=== PATIENT | female | born 1965 | race Caucasian/White ===

== ENCOUNTER 2023-04-06 12:46 | Outpatient (RCR) | payer MEDICAID, SELFPAY | END 2024-03-31 12:07 | disposition left against medical advice (07) | LOC: HO.WCC 12:46 | PROVIDERS: PCP Family Medicine; Visit Provider Physician Assistant | DX: E11.621 Type 2 diabetes mellitus with foot ulcer (principal); L97.412 Non-pressure chronic ulcer of right heel and midfoot with fat layer exposed; L97.812 Non-pressure chronic ulcer of other part of right lower leg with fat layer exposed; L89.323 Pressure ulcer of left buttock, stage 3; E11.622 Type 2 diabetes mellitus with other skin ulcer; I87.2 Venous insufficiency (chronic) (peripheral); R60.0 Localized edema; I10 Essential (primary) hypertension; F17.210 Nicotine dependence, cigarettes, uncomplicated; F11.20 Opioid dependence, uncomplicated; Z86.19 Personal history of other infectious and parasitic diseases | CPT/HCPCS: 11042; 11043; 11045; 97602; 99212; 99214; 99215 ==

== ENCOUNTER 2023-08-28 10:51 | Inpatient (IN) | payer MEDICAID, SELFPAY ==
[2023-08-28] VITALS (7 sets, daily range): BP systolic 131–185; BP diastolic 56–92; PULSE 65–85; RESP 16–20; TEMP 36.4–36.6; O2SAT 94–98; BMI 37.6; BMI 37.0
--- NOTE | ~2023-08-28 | US_ITS ---
EXAMINATION: Noninvasive assessment of the right lower extremities with ARTERIAL DUPLEX . CLINICAL INFORMATION: Peripheral vascular disease with vascular ulceration of the right heel TECHNIQUE: Duplex Doppler techniques with waveform analysis and measurement of velocities in the bilateral common femoral, profunda femoris, superficial femoral, popliteal were performed. Evaluation of the below-knee runoff vessels is limited due to difficulty adequately positioning the patient COMPARISON: None FINDINGS: DIRECT DUPLEX DOPPLER FINDINGS: RIGHT LEG: Common femoral artery: 132 cm/s, phasicity: Monophasic. Moderate calcified plaque Profunda femoris artery: Not visualized Superficial femoral artery (proximal): 185 cm/s, phasicity: Monophasic Superficial femoral artery (mid): 145 cm/s, phasicity: Monophasic Superficial femoral artery (distal): 125 cm/s, phasicity: Monophasic Popliteal artery: 117 cm/s, phasicity: Monophasic Posterior tibial artery: Not visualized Peroneal artery: Not visualized US/US arterial duplex LE RT IMPRESSION: Limited evaluation with patent arterial flow within the visualized femoral and popliteal arteries. Monophasic waveforms seen throughout which could indicate more proximal iliac arterial disease versus below-knee arterial occlusive disease
--- NOTE | ~2023-08-28 | CT_ITS ---
EXAMINATION: CT ANKLE WITH CONTRAST, RIGHT CLINICAL INFORMATION: Diabetic heel ulcer. Evaluate for osteomyelitis. COMPARISON: Right calcaneal radiographs dated 08/28/2023. TECHNIQUE: Contiguous axial CT images of the right ankle were obtained following the IV administration of 85 mL Omnipaque 350 contrast. Multiplanar reformats were provided and reviewed. This CT examination was performed using dose optimization techniques as appropriate, variously including the following: *Automated exposure control *Adjustment of mA and/or kV according to patient size (this includes techniques or standardized protocols for targeted exams where dose is matched to indication/reason for exam; i.e. extremities or head) *Use of iterative reconstruction technique. DOSE: 124 mGy-cm. FINDINGS: Soft tissue ulceration along the posterolateral aspect of the calcaneus measuring up to 3 cm in AP dimension with adjacent skin thickening and postcontrast enhancement. Skin thickening is more circumferential, prominent posteriorly. Mild underlying subcutaneous fat stranding. No peripherally enhancing soft tissue collection or abscess formation. No associated soft tissue mass. Findings are consistent with acute cellulitis. No adjacent periosteal reaction or cortical erosion to suggest osteomyelitis. Early osteomyelitis may be occult on CT examination and MRI without and with contrast or nuclear medicine bone scan could help further evaluate if clinically indicated. Diffuse osteopenia. No acute fracture or dislocation. Ankle mortise is maintained. Mild talonavicular joint space narrowing with small marginal osteophytes. No concerning lytic or blastic osseous lesion. Diffuse muscle atrophy. The visualized flexor and extensor tendons are grossly intact; however, evaluation is limited on CT examination. Unremarkable vascular structures without active extravasation of contrast. No enhancing soft tissue lesion or abscess formation. CT/CT ankle RT w IV con IMPRESSION: 1. Soft tissue ulceration along the posterolateral aspect of the calcaneus measuring up to 3 cm in AP dimension with adjacent skin thickening and subcutaneous fat stranding. Findings are consistent with acute cellulitis. No peripherally enhancing soft tissue collection or abscess formation. 2. No adjacent periosteal reaction or cortical erosion to suggest osseous myelitis. Early osteomyelitis may be occult on CT examination and MRI without and with contrast or nuclear medicine bone scan could help further evaluate 3. Diffuse muscle atrophy. 4. Mild talonavicular osteoarthritis.
--- NOTE | ~2023-08-28 | US_ITS ---
EXAMINATION: US VENOUS ULTRASOUND WITH DOPPLER LOWER EXTREMITY, RIGHT CLINICAL INFORMATION: Right-sided nonhealing ulcer COMPARISON: None available. TECHNIQUE: Ultrasound of the deep veins is performed from the hip to the calf with compression sonography and color and pulse Doppler assessment. Spectral analysis with color-flow imaging is performed. FINDINGS: Exam was terminated as per patient's request. Please see technologist note. The right common femoral and saphenofemoral junction appears patent. No other further assessment provided. US/US venous duplex LE RT IMPRESSION: As above.
--- NOTE | ~2023-08-28 | XR_ITS ---
EXAMINATION: XR CALCANEUS, RIGHT CLINICAL INFORMATION: Rule out osteomyelitis COMPARISON: None available. TECHNIQUE: Lateral and axial views of the right calcaneus were obtained. FINDINGS: Large soft tissue defect identified posterior lateral heel which does not extend to the bony surface. Another smaller posterior soft tissue defect identified medially. Bones are demineralized with no evidence of erosion to suggest active osteomyelitis. XR/XR calcaneus RT min 2V IMPRESSION: No radiographic evidence of osteomyelitis. Heel soft tissue ulcers.
--- NOTE | 2023-08-28 11:00 | ED.GENADULT ---
HPI - General Adult General Chief complaint: Skin/Abscess/Foreign Body Stated complaint: Infection on leg Time Seen by Provider: 08/28/23 11:05 Source: patient Mode of arrival: ambulatory Limitations: no limitations History of Present Illness HPI narrative: 58 yo female with history of diabetes, history of left BKA, chronic RLE wounds, urinary retention w/ chronic Hidalgo catheter, chronic pain on chronic opiates (high dose methadone and dilaudid) presenting [facility] the [facility] with concerns for possible osteomyelitis. Patient reportedly goes to the clinic every 2 weeks. Provider there called the ER and reported worsening right heel wound. She was not febrile or tachycardic. Patient reports increased pain to the entire right lower leg for the last several days. She reports it is usually dressed so she does not know if it is more swollen and red. Today there was increased drainage from the wounds when dressing was changed at the clinic. She denies fevers at home. No recent PO abx per patient. MD complaint: worsening RLE wounds Onset (ago): day(s) Location: right and lower extremity Radiation: proximal and distal Severity: severe Quality: stabbing and aching Pain Consistency: constant Relieving factors: none Exacerbating factors: movement Associated symptoms: denies other symptoms Treatments prior to arrival: none Related Data Allergies Allergy/AdvReac Type Severity Reaction Status Date / Time ceftriaxone Allergy Palpitation Verified 08/28/23 10:57 s haloperidol [From Haldol] Allergy Angioedema Verified 08/28/23 10:57 iodine Allergy Unknown Verified 08/28/23 10:57 metformin Allergy Vomiting Verified 08/28/23 10:57 pollen extracts Allergy Sneezing Verified 08/28/23 10:57 Review of Systems Review of Systems: Yes all other systems are reviewed and are negative [facility] Social History Social History Smoked in Last 30 Days: Yes Use of substances other than those prescribed or required for medical reasons: No Advance Directives: No Physical Exam ED Vital Signs: Vital Signs - 24 hr 08/28/23 10:58 08/28/23 13:40 Temperature 97.8 F 97.6 F Pulse Rate 69 65 Respiratory Rate 20 Blood Pressure 131/77 159/75 H Pulse Oximetry 94 95 Oxygen Delivery Method Room Air Room Air BMI result Body Mass Index 37.6 Appearance: Alert. Oriented X3. No acute distress. Head: normocephalic, atraumatic. Eyes: Pupils equal, round and reactive to light. ENT: Pharynx normal. No tonsillar swelling or exudate. poor dentition Neck: Normal inspection. Neck supple. CVS: Normal heart rate and rhythm. Pulses normal. Respiratory: No respiratory distress. Breath sounds normal. Abdomen: Soft and nontender. +BS x4 Skin: Skin warm and dry. Normal skin color. Normal skin turgor. No rashes. Extremities: s/p left BKA, right lower leg with diffuse erythema, 2+ pitting edema with chronic wounds scattered throughout, lateral wound w/ drainage. right calcaneous w/ beefy red ulcer, minimal drainage. see photo Neuro/psych: Oriented X 3. No motor deficit. No sensory deficit. CN II-XII intact. Normal speech and cognition. Medications Administered Discontinued Medications Generic Name Dose Route Start Last Admin Trade Name Freq PRN Reason Stop Dose Admin Hydromorphone HCl 1 mg 08/28/23 13:35 08/28/23 13:41 Hydromorphone Hcl 1 Mg/Ml Syringe IVPUSH 08/28/23 13:36 1 mg ONCE ONE Administration Protocol Piperacillin Sod/Tazobactam 50 mls @ 100 mls/hr 08/28/23 13:21 08/28/23 13:41 Sod 3.375 gm/ Sodium Chloride IV 08/28/23 13:50 100 mls/hr ONCE ONE Administration Oxycodone HCl 5 mg 08/28/23 11:39 08/28/23 11:52 Oxycodone Hcl Immed Release 5 Mg Tablet PO 08/28/23 11:40 5 mg ONCE ONE Administration Procedures EJ/Peripheral Line Neck R: Time Out Performed: Yes Skin Cleansed in Sterile Fashion: Yes Size (gauge): 20 IV Secured and Dressing Applied: Yes Patient Tolerated Procedure: well and no complications Medical Decision Making Medical Decision Making MDM Narrative: 58 yo female with history of diabetes, history of left BKA, chronic RLE wounds, urinary retention w/ chronic Hidalgo catheter, chronic pain on chronic opiates (high dose methadone and dilaudid) presenting to the ER from the [facility] with concerns for possible osteomyelitis. Patient has had worsening wounds w/ new drainage. Pain is chronic and she is on chronic high dose opiates. VSS on arrival. She is in severe pain w/ limited ROM and placement of the right leg due to pain in the heel. XR calcaneous is negative for osteo. Labs reassuring. Patient not septic at this time. Will plan to admit for IV antibiotics and close monitoring given history and concern for underlying osteo Differential Diagnosis Differential Diagnoses: The differential diagnosis associated with the presentation includes cellulitis, acute on chronic wound infection, osteomyelitis, abscess lower leg Admission/Observation Consideration of admission/observation: Escalation of care including admission/observation considered Consult Healthcare Provider Management of the patient was discussed with: Manufacturing Plant Controller brennan from wound care - concern for osteo, recommending MRI Lab Data [facility] Lab Attestation statement: I reviewed the patient's lab results. 08/28/23 13:25 08/28/23 13:24 Labs: Lab Results 08/28/23 08/28/23 Range/Units 13:24 13:25 WBC 8.9 (4.8-10.8) X10*3/uL RBC 5.40 (4.20-5.50) X10*6/uL Hgb 15.1 (12.0-16.0) g/dl Hct 47.7 H (37.0-47.0) % MCV 88.3 (80.0-98.0) fL MCH 28.0 (27.0-33.0) pg MCHC 31.7 (31.0-35.0) g/dl RDW 15.9 (11.0-16.0) % Plt Count 331 (160-400) X10*3/uL MPV 9.9 (9.4-12.3) fL Immature Gran % (Auto) 0.3 (0.0-0.4) % Neut % (Auto) 53.6 (45-73) % Lymph % (Auto) 36.3 (20-40) % Weld % (Auto) 6.4 (2-11) % Eos % (Auto) 2.6 (0-4) % Baso % (Auto) 0.8 (0-2) % Lymph # (Auto) 3.2 (1.2-4.9) X10*3/uL Weld # (Auto) 0.6 (0.1-1.2) X10*3/uL Eos # (Auto) 0.2 (0.0-0.4) X10*3/uL Baso # (Auto) 0.1 (0.0-0.2) X10*3/uL Abs Immat Gran (auto) 0.03 (0.00-0.03) X10*3/uL Absolute Neuts (auto) 4.7 (2.0-8.3) x10*3/uL Absolute Nucleated RBC 0.000 (0.0-0.012) X10*3/uL Nucleated RBC % (auto) 0.0 (0.0-0.2) /100WBC ESR 11 (0-20) MM/HR Sodium 141 (135-145) mmol/L Potassium 3.9 (3.3-5.1) mmol/L Chloride 102 (96-108) mmol/L Carbon Dioxide 30 H (22-29) mmol/L Anion Gap 13 (12-20) BUN 13 (9-16) mg/dL Creatinine 0.71 (0.5-1.4) mg/dL Estim Creat Clear Calc 77.9 Estimated GFR > 60 Random Glucose 179 H (60-115) mg/dL Lactic Acid 1.6 (0.5-2.0) mmol/L Calcium 9.4 (8.4-10.2) mg/dL C-Reactive Protein 0.75 H (< or = 0.50) mg/dL Independent Interpretation I performed an independent interpretation of an: Plain X-Ray Interpretation: xr heel without definitive bony erosions, agree w/ radiology read Radiology Impression Discussion of test interpretation with radiology: I have reviewed the radiologist's reading. Radiologist Impression: EXAMINATION: XR CALCANEUS, RIGHT CLINICAL INFORMATION: Rule out osteomyelitis COMPARISON: None available. TECHNIQUE: Lateral and axial views of the right calcaneus were obtained. FINDINGS: Large soft tissue defect identified posterior lateral heel which does not extend to the bony surface. Another smaller posterior soft tissue defect identified medially. Bones are demineralized with no evidence of erosion to suggest active osteomyelitis. XR/XR calcaneus RT min 2V IMPRESSION: No radiographic evidence of osteomyelitis. Heel soft tissue ulcers. External Record Review External record reviewed: Outpatient record Prescription Management I considered prescription management with: Pain Medication and Antibiotic Chronic Conditions Patient?s care impacted by: Diabetes Critical Care Time Critical Care Time Critical Care Time: Yes Total Critical Care Time: 34 Attestation: I have personally provided critical care time exclusive of time spent on separately billable procedures. Time includes review of lab data, radiology results, discussion with consultants, and monitoring for potential decompensation. Intervention performed as documented. Discharge Plan Discharge Clinical Impression: Cellulitis Qualifiers: Site of cellulitis: extremity Site of cellulitis of extremity: lower extremity Laterality: right Qualified Code(s): L03.115 - Cellulitis of right lower limb Patient Disposition: Admitted As Inpatient
[2023-08-28] MEDS: oxyCODONE HCl Immed Release 5 MG TABLET PO (11:52)
--- NOTE | 2023-08-28 12:04 | PC.NURSE ---
in xray at this time. provider brandon dickens came to bedside to do US- will do when back. pt was diff stick- multiple RNS/tech tried to get blood/IV. unable. PA aware. wound undressed w PA at bedside. right leg: indentations in skin in heel/schwab/calf areas. very pink/warm. reports numbness/tingling. painful when moves. swollen. limited ROM r/t pain. elevation helps- given pillows and elevated. aox4. no respiratory distress- reg breathing.
--- NOTE | 2023-08-28 12:20 | PC.NURSE ---
dressing placed by RN after cleansing wounds to R leg. PA at bedside, visualized prior to dressing
--- NOTE | 2023-08-28 12:30 | PC.NURSE ---
attending MD Cobb at bedside attempting to place PIV/obtain blood.
--- NOTE | 2023-08-28 13:00 | PC.NURSE ---
MD Cobb at bedside attempting again for IV/blood with ultrasound. To attempt EJ
--- NOTE | 2023-08-28 13:40 | PC.NURSE ---
MD Cobb placing EJ via ultrasound and obtaining blood
[2023-08-28 13:41] LABS: MANUAL DIFF FLAG NO
[2023-08-28] MEDS: HYDROmorphone HCl 1 MG/ML SYRINGE IVPUSH ×2 (13:41→16:03)
[2023-08-28] MEDS: Piperacillin Sodium/Tazobactam 3.375 GM in 0.9 % Sodium Chloride 50 ML IV ×2 (13:41→21:15)
[2023-08-28 13:44] LABS: Basophils Absolute Auto 0.1 X10*3/uL (0.0-0.2); Basophils Percent Auto 0.8 % (0-2); Eosinophils Absolute Auto 0.2 X10*3/uL (0.0-0.4); Eosinophils Percent Auto 2.6 % (0-4); Hematocrit 47.7 % (37.0-47.0); Hemoglobin 15.1 g/dl (12.0-16.0); Imm Gran Abs Auto 0.03 X10*3/uL (0.00-0.03); Imm Gran Pct Auto 0.3 % (0.0-0.4); Lymphocytes Absolute Auto 3.2 X10*3/uL (1.2-4.9); Lymphocytes Percent Auto 36.3 % (20-40); Mean Corpuscular HGB Conc 31.7 g/dl (31.0-35.0); Mean Corpuscular Volume 88.3 fL (80.0-98.0); Mean Platelet Volume 9.9 fL (9.4-12.3); Monocytes Absolute Auto 0.6 X10*3/uL (0.1-1.2); Monocytes Percent Auto 6.4 % (2-11); Neutrophils Absolute Auto 4.7 x10*3/uL (2.0-8.3); Neutrophils Percent Auto 53.6 % (45-73); Platelet Count 331 X10*3/uL (160-400); Red Cell Distribution Width 15.9 % (11.0-16.0); White Blood Count 8.9 X10*3/uL (4.8-10.8)
[2023-08-28 13:56] LABS: Lactic Acid 1.6 mmol/L (0.5-2.0)
[2023-08-28 13:58] LABS: Anion Gap 13 (12-20); Blood Urea Nitrogen 13 mg/dL (9-16); C Reactive Protein 0.75 mg/dL (< or = 0.50); Calcium 9.4 mg/dL (8.4-10.2); Carbon Dioxide 30 mmol/L (22-29); Chloride 102 mmol/L (96-108); Creatinine Clr Calc Pharmacy 77.9; Estimated Glomerular Filt Rate > 60; Glucose Random 179 mg/dL (60-115); Potassium 3.9 mmol/L (3.3-5.1); Sodium 141 mmol/L (135-145)
--- NOTE | 2023-08-28 14:00 | PC.NURSE ---
pt repositioned w pillows
[2023-08-28 14:31] LABS: Erythrocyte Sedimentation Rate 11 MM/HR (0-20)
[2023-08-28] MEDS: vancomycin/NS 2,000 MG/500 ML PLAST..BAG 250 MG IV (14:57)
--- NOTE | 2023-08-28 15:30 | PHA.MEDREC ---
Pharmacy Consult ? Medication Reconciliation Pharmacy has completed the medication reconciliation. Patient came from [facility] with medications. Called to conformed patient last received methadone this morning 08/28 @ 0800. Mina FranzD
--- NOTE | 2023-08-28 16:00 | PC.NURSE ---
boosted, repositioned. offered more pillows. tucked r knee over pillow/blankets as requested by pt. no resp distress. reports some pain relief noted. no respiratory distress. offered heat pack for knee.
[2023-08-28] MEDS: clonazePAM 0.5 MG TABLET PO ×2 (16:01→20:45)
--- NOTE | 2023-08-28 16:33 | PM.IMHP ---
History of Present Illness Date of Service: 08/28/23 Chief Complaint: infected heel ulcer 58yo F long-term resident of [facility] with DM2 s/p L BKA, HTN, chronic pain on methadone + hydromorphone, urinary retention with chronic Hidalgo anxiety/depression, and tobacco abuse who was sent in by the [facility], where she was being seen for a chronic R heel ulcer as well as ulcers on the schwab. They sent her in for concern of infection and possible underlying osteomyelitis due to worsening drainage as well as extensive redness. She reports increasing burning pain to the RLE for several. She denies fever or chills. In the ED, she was given IV vancomycin and piperacillin-tazobactam. A plain film X-ray did not demonstrate bony erosion. Review of Systems Review of Systems: Yes all other systems are reviewed and are negative [facility] Medical History Chronic pain syndrome Tobacco abuse History of left below knee amputation Urinary retention Hypertension Diabetes mellitus type 2 in obese Social History Smoked in Last 30 Days: Yes Use of substances other than those prescribed or required for medical reasons: No Advance Directives: No Meds Allergies Allergy/AdvReac Type Severity Reaction Status Date / Time ceftriaxone Allergy Palpitation Verified 08/28/23 10:57 s haloperidol [From Haldol] Allergy Angioedema Verified 08/28/23 10:57 iodine Allergy Unknown Verified 08/28/23 10:57 metformin Allergy Vomiting Verified 08/28/23 10:57 pollen extracts Allergy Sneezing Verified 08/28/23 10:57 Active Medications: Current Medications Acetaminophen (Acetaminophen 325 Mg Tablet) 650 mg PO Q6H PRN PRN Reason: Pain, Mild (Pain Scale 1-3) Aspirin (Aspirin Enteric Coated 81 Mg Tablet.Dr) 81 mg PO DAILY RIA Atorvastatin Calcium (Atorvastatin Calcium 10 Mg Tablet) 10 mg PO BEDTIME RIA Baclofen (Baclofen 10 Mg Tablet) 15 mg PO TID RIA Chlorhexidine Gluconate (Chlorhexidine Gluc Oral Rinse 15 Ml Mouthwash) 15 ml BUCCAL BID RIA Clonazepam (Clonazepam 0.5 Mg Tablet) 0.5 mg PO BID RIA Dextrose (Dextrose 50 % 25 Gm/50 Ml Syringe) 25 gm IVPUSH Q15M PRN; Protocol PRN Reason: per Hypoglycemia Standing Ord. Enoxaparin Sodium (Enoxaparin Sodium 40 Mg/0.4 Ml Syringe) 40 mg SUBCUT Q24H [facility] Famotidine (Famotidine 20 Mg Tablet) 20 mg PO DAILY [facility] Gabapentin (Gabapentin 400 Mg Capsule) 800 mg PO TID [facility] Glucose (Glucose Gel 15 Gm Gel..Gram.) 15 gm PO Q15M PRN; Protocol PRN Reason: per Hypoglycemia Standing Ord. Hydromorphone HCl (Hydromorphone Hcl 4 Mg Tablet) 8 mg PO TID [facility] Hydromorphone HCl (Hydromorphone Hcl 4 Mg Tablet) 8 mg PO Q12H PRN PRN Reason: Pain, Severe (Pain Scale 7-10) Hydroxyzine HCl (Hydroxyzine Hcl 50 Mg Tablet) 100 mg PO BEDTIME [facility] Piperacillin Sod/Tazobactam (Sod 3.375 gm/ Sodium Chloride) 50 mls @ 100 mls/hr IV Q6H [facility] Insulin Glargine (Insulin Glargine,Hum.Rec.Anlog 100 Unit/Ml 10 Ml Vial) 10 unit SUBCUT BEDTIME [facility] Insulin Human Lispro (Insulin Lispro 100 Unit/Ml 3 Ml Vial) 0 unit SUBCUT QIDACHS [facility]; Protocol Lisinopril (Lisinopril 2.5 Mg Tablet) 2.5 mg PO DAILY [facility]; Protocol Loperamide HCl (Loperamide Hcl 2 Mg Capsule) 2 mg PO Q6H PRN PRN Reason: Loose Stool Melatonin (Melatonin 3 Mg Tablet) 9 mg PO BEDTIME PRN PRN Reason: Insomnia Methadone HCl (Methadone Hcl 20 Mg/2 Ml Oral.Conc) 150 mg PO DAILY [facility] Multivitamins/Vitamin C (Multivitamin Tablet) 1 tab PO DAILY [facility] Ondansetron HCl (Ondansetron Hcl 4 Mg/2 Ml Vial) 4 mg IVPUSH Q8H PRN PRN Reason: Nausea and Vomiting Oxybutynin Chloride (Oxybutynin Chloride 5 Mg Tablet) 5 mg PO BEDTIME [facility] Pharmacy Consult (Consult Rx Vancomycin Dosing) 1 each MISCELLANE DAILY PRN PRN Reason: Consult order Polyethylene Glycol (Polyethylene Glycol 3350 17 Gm Powd.Pack) 17 gm PO DAILY [facility] Senna (Sennosides 8.6 Mg Tablet) 8.6 mg PO BID [facility] Sodium Chloride (0.9 % Sodium Chloride Flush 3 Ml Syringe) 3 ml IVFLUSH QSHIFT [facility] Thiamine HCl (Thiamine Hcl 100 Mg Tablet) 100 mg PO DAILY [facility] Tizanidine HCl (Tizanidine Hcl 4 Mg Tablet) 2 mg PO TID [facility] Topiramate (Topiramate 25 Mg Tablet) 25 mg PO DAILY [facility] Trazodone HCl (Trazodone Hcl 50 Mg Tablet) 50 mg PO BEDTIME [facility] Home Medications Medication Instructions Recorded Confirmed Last Taken Type Saccharomyces boulardii 1 cap PO BID 08/28/23 08/28/23 Unknown History acetaminophen 500 mg tablet 1,000 mg PO TID 08/28/23 08/28/23 Unknown History ammonium lactate 5 % lotion 1 appl topical DAILY 08/28/23 08/28/23 Unknown History (Lac-Hydrin Five) aspirin 81 mg capsule 81 mg PO DAILY 08/28/23 08/28/23 Unknown History atorvastatin 10 mg tablet 10 mg PO BEDTIME 08/28/23 08/28/23 Unknown History baclofen 5 mg tablet 15 mg PO TID 08/28/23 08/28/23 Unknown History chlorhexidine gluconate 0.12 % 15 ml buccal BID 08/28/23 08/28/23 Unknown History mouthwash clonazepam 0.5 mg tablet (Klonopin) 0.5 mg PO BID 08/28/23 08/28/23 Unknown History clotrimazole 1 % topical cream 1 appl topical BID 08/28/23 08/28/23 Unknown History empagliflozin 25 mg tablet 25 mg PO DAILY 08/28/23 08/28/23 Unknown History famotidine 20 mg tablet 20 mg PO DAILY 08/28/23 08/28/23 Unknown History gabapentin 800 mg tablet 800 mg PO TID 08/28/23 08/28/23 Unknown History glipizide 10 mg tablet, extended 20 mg PO DAILY 08/28/23 08/28/23 Unknown History release 24 hr hydromorphone 8 mg tablet 8 mg PO Q12H PRN Pain 08/28/23 08/28/23 Unknown History hydromorphone 8 mg tablet 8 mg PO TID 08/28/23 08/28/23 Unknown History (Dilaudid) hydroxyzine HCl 50 mg tablet 100 mg PO BEDTIME 08/28/23 08/28/23 Unknown History insulin glargine 100 unit/mL 10 unit subcut QPM 08/28/23 08/28/23 Unknown History subcutaneous solution (Lantus U-100 Insulin) insulin lispro 100 unit/mL 1 sliding scale dose subcut 08/28/23 08/28/23 Unknown History subcutaneous solution (Admelog USEASDIRECTD U-100 Insulin lispro) lidocaine 3 % topical cream 1 appl topical DAILY PRN Pain 08/28/23 08/28/23 Unknown History lidocaine 3 % topical cream 1 appl topical Q48H 08/28/23 08/28/23 Unknown History lisinopril 2.5 mg tablet 2.5 mg PO DAILY 08/28/23 08/28/23 Unknown History loperamide 2 mg tablet 2 mg PO Q6H PRN Loose Stool 08/28/23 08/28/23 Unknown History melatonin 5 mg tablet 10 mg PO BEDTIME PRN Insomnia 08/28/23 08/28/23 Unknown History methadone 10 mg/mL oral 150 mg PO DAILY 08/28/23 08/28/23 08/28/23 08:00 History concentrate (Methadose) multivitamin 1 tab PO DAILY 08/28/23 08/28/23 Unknown History oxybutynin chloride 5 mg tablet 5 mg PO BEDTIME 08/28/23 08/28/23 Unknown History polyethylene glycol 3350 17 gram 17 g PO DAILY 08/28/23 08/28/23 Unknown History oral powder packet (Miralax) sennosides 8.6 mg tablet (senna) 8.6 mg PO BID 08/28/23 08/28/23 Unknown History thiamine HCl (vitamin B1) 100 mg 100 mg PO DAILY 08/28/23 08/28/23 Unknown History tablet tizanidine 2 mg tablet 2 mg PO TID 08/28/23 08/28/23 Unknown History topiramate 25 mg tablet 25 mg PO DAILY 08/28/23 08/28/23 Unknown History trazodone 50 mg tablet 50 mg PO BEDTIME 08/28/23 08/28/23 Unknown History Physical Exam Vital Signs and Narrative: Vital Signs: Last Vital Signs Temp 98 F 08/28/23 16:00 Pulse 65 08/28/23 13:40 Resp 16 08/28/23 16:00 BP 185/92 H 08/28/23 16:00 Pulse Ox 98 08/28/23 16:00 O2 Del Method Room Air 08/28/23 16:00 BMI result Body Mass Index 37.6 Gen: in no acute distress HEENT: sclera anicteric, moist mucus membranes Neck: supple Lungs: clear to auscultation bilaterally Heart: regular rate and rhythm, no murmurs Abd: soft, non-tender, non-distended Ext: s/p L BKA. RLE with bright red erythema, induration, and edema from proximal calf/schwab inferiorly with lateral ulcers that are draining; large ulcer over R heel. Skin: warm/well-perfused Neuro: alert and oriented x3, no focal findings Psych: appropriate affect Results Labs 08/28/23 13:25 08/28/23 13:24 Labs: Laboratory Results - last 24 hr 08/28/23 08/28/23 13:24 13:25 MCV 88.3 MCH 28.0 MCHC 31.7 RDW 15.9 Plt Count 331 MPV 9.9 Immature Gran % (Auto) 0.3 Neut % (Auto) 53.6 Lymph % (Auto) 36.3 Perry % (Auto) 6.4 Eos % (Auto) 2.6 Baso % (Auto) 0.8 Lymph # (Auto) 3.2 Perry # (Auto) 0.6 Eos # (Auto) 0.2 Baso # (Auto) 0.1 Abs Immat Gran (auto) 0.03 Absolute Neuts (auto) 4.7 Absolute Nucleated RBC 0.000 Nucleated RBC % (auto) 0.0 ESR 11 Anion Gap 13 Estim Creat Clear Calc 77.9 Estimated GFR > 60 Random Glucose 179 H Lactic Acid 1.6 Calcium 9.4 C-Reactive Protein 0.75 H Imaging Radiologist's Impressions: Impressions Calcaneus X-Ray 08/28/23 11:25 IMPRESSION: No radiographic evidence of osteomyelitis. Heel soft tissue ulcers. Assessment and Plan (1) Cellulitis: Qualifiers: Laterality: right Site of cellulitis: extremity Site of cellulitis of extremity: lower extremity Qualified Code(s): L03.115 - Cellulitis of right lower limb Status: Acute (2) Diabetic ulcer of heel: Status: Acute Plan 58yo F long-term resident of [facility] with DM2 s/p L BKA, HTN, chronic pain on methadone + hydromorphone, urinary retention with chronic Hidalgo anxiety/depression, tobacco abuse, and chronic RLE wounds presenting with cellulitis of RLE and concern of R heel ulcer infection with possible underlying osteomyelitis. infected diabetic ulcer of R heel with cellultis - admit to M/S. not septic. continue vanc + pip-susy. follow BCx. MRI to r/o underlying osteo. inflammatory markers low. HTN - lisinopril HLD - statin DM2 - basal-bolus insulin tobacco abuse - NRT chronic pain - methadone, hydromorphone as per outpt dosing, gabapentin, baclofen, tizanidine urinary retention - oxybutynin, Hidalgo mood disorder - clonazepam, hydroxyzine, topiramate, trazodone GERD - famotidine VTE prophylaxis - LMWH dispo - LTC @ [facility] code status - full I anticipate that the patient will stay at least 2 midnights as an inpatient in the hospital due to the above reasons. It is neither reasonable nor safe to care for them in a less acute setting. Time Spent With Patient Time: Total time managing care of this patient today ____ minutes. Quality Stroke Does the patient have a stroke diagnosis?: No VTE Prior VTE?: No VTE Risk Level:: Medical - moderate - high VTE Device Contraindication: Procedure Contraindicated VTE Drug Contraindication: N/A - Med Ordered
--- NOTE | 2023-08-28 16:56 | PC.NURSE ---
pt OOB in wheelchair in room. RN offered to redress right leg wound. pt declined. offered po fluids to pt.
--- NOTE | 2023-08-28 17:00 | PC.NURSE ---
pt is sitting up in wheelchair per pt's request. repositioned.
[2023-08-28] MEDS: Enoxaparin Sodium 40 MG/0.4 ML SYRINGE SUBCUT (17:06)
--- NOTE | 2023-08-28 18:00 | PC.NURSE ---
offered food. pt sitting in wheelchair soaking foot in basin per request. given new towels.
[2023-08-28 18:06] LABS: Glucose, Whole Blood 139 mg/dL (60-115)
--- NOTE | 2023-08-28 18:28 | PC.NURSE ---
called kitchen as pt states cannot have cheese b/c . called for another tray. offered other snacks in mean time.
--- NOTE | 2023-08-28 18:29 | MHC.EDTECH ---
This electrical mechanical technician walked over to overflow to get a basin for patient with warm water so patient could soak right foot. Patient happy and comfortable.
--- NOTE | 2023-08-28 18:32 | PC.NURSE ---
tray brought from kitchen. pt talking without distress.
[2023-08-28] MEDS: Nicotine 14 MG PATCH.TD24 TRANSDERMA (18:39)
[2023-08-28] MEDS: Atorvastatin Calcium 10 MG TABLET PO (20:43)
[2023-08-28] MEDS: Gabapentin 400 MG CAPSULE 800 MG PO (20:44)
[2023-08-28] MEDS: hydrOXYzine HCL 50 MG TABLET 100 MG PO (20:46)
[2023-08-28] MEDS: oxyBUTYnin chloride 5 MG TABLET PO (20:47)
[2023-08-28] MEDS: TiZANidine HCL 4 MG TABLET 2 MG PO (20:49)
[2023-08-28] MEDS: Baclofen 10 MG TABLET 15 MG PO (20:50)
[2023-08-28 20:52] LABS: Glucose, Whole Blood 164 mg/dL (60-115)
[2023-08-28] MEDS: Chlorhexidine Gluc Oral Rinse 15 ML MOUTHWASH BUCCAL (20:54)
[2023-08-28] MEDS: Melatonin 3 MG TABLET 9 MG PO (21:00)
[2023-08-28] MEDS: Insulin Glargine,Hum.rec.anlog 100 UNIT/ML 10 ML VIAL 10 UNIT SUBCUT (21:12)
[2023-08-28] MEDS: Insulin Lispro 100 UNIT/ML 3 ML VIAL SUBCUT (21:12)
[2023-08-28] MEDS: 0.9 % Sodium Chloride Flush 3 ML SYRINGE IVFLUSH (21:14)
--- NOTE | 2023-08-28 22:01 | PHA.PROG ---
Admission Date/Time: August 28, 2023 16:20 Indication: Bone and Joint Weight in k.4 kg Adjusted body weight in K.4 kg [place] body weight in Kg: Obesity Dosing Indication % IBW: Serum Creatinine - Last 168 Hours 08/28/23 13:24 Creatinine 0.71 Estimated CrCl and GFR - Last 168 Hours 08/28/23 13:24 Estim Creat Clear Calc 77.9 Estimated GFR > 60 Vancomycin Loading Dose: 2000 mg Current Vancomycin Dosing Regimen: 1000 mg Q12H Date and Time for next Vancomycin Level to be drawn: 08/29 @ 1300 Pharmacist Comments on Vancomycin Plan: patient received an adequate load dose in the ER 08/28 @ 1457 Maintenance dose vancomycin 1000 mg Q12H is scheduled to start 08/29 @ 0300. Expected AUC 469 with atrough of 14.5 Patient has BMI of 37 therefore need careful monitoring due to vancomycin's high volume of distribution Pharmacy will monitor renal function daily Lanette Grya, Pritesh Vancomycin dosing will take advantage of [employer] as a clinical decision support tool that uses Bayesian modeling to calculate individual patient's pharmacokinetic parameters and forecast the patient's drug concentration time course with the target goal AUC 24 range of 400 - 600 mg/L/hr.
[2023-08-29 02:52] VITALS: BP 180/87; PULSE 75; RESP 17; TEMP 36.4; O2SAT 95
[2023-08-29] MEDS: Piperacillin Sodium/Tazobactam 3.375 GM in 0.9 % Sodium Chloride 50 ML IV ×4 (02:57→22:12)
[2023-08-29] MEDS: vancomycin HCL 1,000 MG in 0.9 % Sodium Chloride 250 ML 270 MG IV ×2 (03:28→15:49)
[2023-08-29 06:03] LABS: Hematocrit 45.9 % (37.0-47.0); Hemoglobin 14.8 g/dl (12.0-16.0); Mean Corpuscular HGB Conc 32.2 g/dl (31.0-35.0); Mean Corpuscular Hemoglobin 28.3 pg (27.0-33.0); Mean Corpuscular Volume 87.8 fL (80.0-98.0); Mean Platelet Volume 9.4 fL (9.4-12.3); Platelet Count 278 X10*3/uL (160-400); Red Blood Count 5.23 X10*6/uL (4.20-5.50); Red Cell Distribution Width 15.6 % (11.0-16.0); White Blood Count 9.2 X10*3/uL (4.8-10.8)
[2023-08-29 06:21] LABS: Anion Gap 12 (12-20); Blood Urea Nitrogen 9 mg/dL (9-16); Calcium 8.8 mg/dL (8.4-10.2); Carbon Dioxide 27 mmol/L (22-29); Chloride 106 mmol/L (96-108); Creatinine Clr Calc Pharmacy 89.9; Estimated Glomerular Filt Rate > 60; Glucose Random 130 mg/dL (60-115); Potassium 3.8 mmol/L (3.3-5.1); Sodium 141 mmol/L (135-145)
--- NOTE | 2023-08-29 07:33 | PC.NURSE ---
During initial admission assessment, pt appeared agitated, complaining of 10/10 pain to RLE. Pt mention discomfort between legs but refused additional assessment from this RN. Prior to coming on the unit pt was accusatory in the ER, so this RN had another staff in pt's room during assessment, patient care, or medication administration. Pt can easily get agitated when providing any patient care. Will continue to monitor pt's behavior.
[2023-08-29 08:00] VITALS: BP 133/65; PULSE 72; RESP 18; TEMP 36.1; O2SAT 92
[2023-08-29 08:07] LABS: Glucose, Whole Blood 139 mg/dL (60-115)
[2023-08-29] MEDS: 0.9 % Sodium Chloride Flush 3 ML SYRINGE IVFLUSH ×2 (08:48→22:24)
[2023-08-29] MEDS: methADONE HCl 20 MG/2 ML ORAL.CONC 150 MG PO (08:53)
[2023-08-29] MEDS: Gabapentin 400 MG CAPSULE 800 MG PO ×2 (08:55→22:13)
[2023-08-29] MEDS: Multivitamin TABLET 1 TAB PO (08:56)
[2023-08-29] MEDS: Topiramate 25 MG TABLET PO (08:56)
[2023-08-29] MEDS: Baclofen 10 MG TABLET 15 MG PO ×2 (08:56→22:15)
[2023-08-29] MEDS: Famotidine 20 MG TABLET PO (08:57)
[2023-08-29] MEDS: clonazePAM 0.5 MG TABLET PO ×2 (08:58→22:14)
[2023-08-29] MEDS: lisinopriL 2.5 MG TABLET PO (08:58)
[2023-08-29] MEDS: Aspirin Enteric Coated 81 MG TABLET.DR PO (08:59)
[2023-08-29] MEDS: TiZANidine HCL 4 MG TABLET 2 MG PO ×2 (08:59→22:16)
[2023-08-29] MEDS: Thiamine HCL 100 MG TABLET PO (09:00)
--- NOTE | 2023-08-29 09:27 | MHC.CM.PN ---
pt from [facility] where she will return via [facility] when dcd
--- NOTE | 2023-08-29 10:30 | P.PNIM_ITS ---
Subjective Subjective Date of Service: 08/29/23 Interval History: MRI ordered but unable to straighten leg and won't fit in camera no fever/chills pain controlled Review of Systems Review of Systems: Yes all other systems are reviewed and are negative Physical Exam 2 Vital Signs: Vital Signs: Last Vital Signs Temp 96.9 F 08/29/23 08:00 Pulse 72 08/29/23 08:00 Resp 18 08/29/23 08:00 BP 133/65 08/29/23 08:00 Pulse Ox 92 08/29/23 08:00 O2 Del Method Room Air 08/29/23 08:00 BMI result Body Mass Index 37.0 Gen: in no acute distress HEENT: sclera anicteric, moist mucus membranes Neck: supple Lungs: clear to auscultation bilaterally Heart: regular rate and rhythm, no murmurs Abd: soft, non-tender, non-distended Ext: s/p L BKA. RLE with well-demarcated red erythema, induration, and edema from proximal calf/schwab inferiorly with lateral ulcers that are draining; large ulcer over R heel. Skin: warm/well-perfused Neuro: alert and oriented x3, no focal findings Psych: appropriate affect Objective Data Active Medications Acetaminophen (Acetaminophen 325 Mg Tablet) 650 mg PO Q6H PRN PRN Reason: Pain, Mild (Pain Scale 1-3) Aspirin (Aspirin Enteric Coated 81 Mg Tablet.) 81 mg PO DAILY [facility] Last Admin: 08/29/23 08:59 Dose: 81 mg Documented By: AMY Atorvastatin Calcium (Atorvastatin Calcium 10 Mg Tablet) 10 mg PO BEDTIME [facility] Last Admin: 08/28/23 20:43 Dose: 10 mg Documented By: KWAME Baclofen (Baclofen 10 Mg Tablet) 15 mg PO TID [facility] Last Admin: 08/29/23 08:56 Dose: 15 mg Documented By: AMY Chlorhexidine Gluconate (Chlorhexidine Gluc Oral Rinse 15 Ml Mouthwash) 15 ml BUCCAL BID [facility] Last Admin: 08/28/23 20:54 Dose: 15 ml Documented By: KWAME Clonazepam (Clonazepam 0.5 Mg Tablet) 0.5 mg PO BID [facility] Last Admin: 08/29/23 08:58 Dose: 0.5 mg Documented By: AMY Dextrose (Dextrose 50 % 25 Gm/50 Ml Syringe) 25 gm IVPUSH Q15M PRN; Protocol PRN Reason: per Hypoglycemia Standing Ord. Enoxaparin Sodium (Enoxaparin Sodium 40 Mg/0.4 Ml Syringe) 40 mg SUBCUT Q24H [facility] Last Admin: 08/28/23 17:06 Dose: 40 mg Documented By: ILIA Famotidine (Famotidine 20 Mg Tablet) 20 mg PO DAILY [facility] Last Admin: 08/29/23 08:57 Dose: 20 mg Documented By: AMY Gabapentin (Gabapentin 400 Mg Capsule) 800 mg PO TID [facility] Last Admin: 08/29/23 08:55 Dose: 800 mg Documented By: AMY Glucose (Glucose Gel 15 Gm Gel..Gram.) 15 gm PO Q15M PRN; Protocol PRN Reason: per Hypoglycemia Standing Ord. Hydromorphone HCl (Hydromorphone Hcl 4 Mg Tablet) 8 mg PO TID [facility] Last Admin: 08/29/23 08:58 Dose: 8 mg Documented By: AMY Hydromorphone HCl (Hydromorphone Hcl 4 Mg Tablet) 8 mg PO Q12H PRN PRN Reason: Pain, Severe (Pain Scale 7-10) Last Admin: 08/29/23 05:48 Dose: 8 mg Documented By: KWAME Hydroxyzine HCl (Hydroxyzine Hcl 50 Mg Tablet) 100 mg PO BEDTIME [facility] Last Admin: 08/28/23 20:46 Dose: 100 mg Documented By: KWAME Vancomycin HCl 1,000 mg/ (Sodium Chloride) 270 mls @ 270 mls/hr IV Q12H [facility] Last Infusion: 08/29/23 04:47 Dose: Infused Documented By: KWAME Piperacillin Sod/Tazobactam (Sod 3.375 gm/ Sodium Chloride) 50 mls @ 100 mls/hr IV Q6H [facility] Last Infusion: 08/29/23 09:28 Dose: Infused Documented By: AMY Insulin Glargine (Insulin Glargine,Hum.Rec.Anlog 100 Unit/Ml 10 Ml Vial) 10 unit SUBCUT BEDTIME [facility] Last Admin: 08/28/23 21:12 Dose: 10 unit Documented By: KWAME Insulin Human Lispro (Insulin Lispro 100 Unit/Ml 3 Ml Vial) 0 unit SUBCUT QIDACHS [facility]; Protocol Last Admin: 08/29/23 08:24 Dose: Not Given Documented By: AMY Non-Admin Reason: No Insulin Coverage Lisinopril (Lisinopril 2.5 Mg Tablet) 2.5 mg PO DAILY [facility]; Protocol Last Admin: 08/29/23 08:58 Dose: 2.5 mg Documented By: AMY Loperamide HCl (Loperamide Hcl 2 Mg Capsule) 2 mg PO Q6H PRN PRN Reason: Loose Stool Melatonin (Melatonin 3 Mg Tablet) 9 mg PO BEDTIME PRN PRN Reason: Insomnia Last Admin: 08/28/23 21:00 Dose: 9 mg Documented By: KWAME Methadone HCl (Methadone Hcl 20 Mg/2 Ml Oral.Conc) 150 mg PO DAILY [facility] Last Admin: 08/29/23 08:53 Dose: 150 mg Documented By: AMY Multivitamins/Vitamin C (Multivitamin Tablet) 1 tab PO DAILY [facility] Last Admin: 08/29/23 08:56 Dose: 1 tab Documented By: AMY Nicotine (Nicotine 14 Mg Patch.Td24) 14 mg TRANSDERMA DAILY [facility] Last Admin: 08/28/23 18:39 Dose: 14 mg Documented By: ILIA Ondansetron HCl (Ondansetron Hcl 4 Mg/2 Ml Vial) 4 mg IVPUSH Q8H PRN PRN Reason: Nausea and Vomiting Oxybutynin Chloride (Oxybutynin Chloride 5 Mg Tablet) 5 mg PO BEDTIME [facility] Last Admin: 08/28/23 20:47 Dose: 5 mg Documented By: KWAME Pharmacy Consult (Consult Rx Vancomycin Dosing) 1 each MISCELLANE DAILY PRN PRN Reason: Consult order Polyethylene Glycol (Polyethylene Glycol 3350 17 Gm Powd.Pack) 17 gm PO DAILY [facility] Senna (Sennosides 8.6 Mg Tablet) 8.6 mg PO BID [facility] Last Admin: 08/28/23 20:53 Dose: Not Given Documented By: KWAME Non-Admin Reason: Patient Refused Sodium Chloride (0.9 % Sodium Chloride Flush 3 Ml Syringe) 3 ml IVFLUSH QSHIFT [facility] Last Admin: 08/29/23 08:48 Dose: 3 ml Documented By: AMY Thiamine HCl (Thiamine Hcl 100 Mg Tablet) 100 mg PO DAILY [facility] Last Admin: 08/29/23 09:00 Dose: 100 mg Documented By: AMY Tizanidine HCl (Tizanidine Hcl 4 Mg Tablet) 2 mg PO TID [facility] Last Admin: 08/29/23 08:59 Dose: 2 mg Documented By: AMY Topiramate (Topiramate 25 Mg Tablet) 25 mg PO DAILY [facility] Last Admin: 08/29/23 08:56 Dose: 25 mg Documented By: AMY Trazodone HCl (Trazodone Hcl 50 Mg Tablet) 50 mg PO BEDTIME [facility] Last Admin: 08/28/23 22:09 Dose: Not Given Documented By: KWAME Non-Admin Reason: Patient Refused Labs 08/29/23 05:54 08/29/23 05:54 Labs: Laboratory Results - last 24 hr 08/28/23 08/28/23 08/28/23 13:24 13:25 18:03 MCV 88.3 MCH 28.0 MCHC 31.7 RDW 15.9 Plt Count 331 MPV 9.9 Immature Gran % (Auto) 0.3 Neut % (Auto) 53.6 Lymph % (Auto) 36.3 Benson % (Auto) 6.4 Eos % (Auto) 2.6 Baso % (Auto) 0.8 Lymph # (Auto) 3.2 Benson # (Auto) 0.6 Eos # (Auto) 0.2 Baso # (Auto) 0.1 Abs Immat Gran (auto) 0.03 Absolute Neuts (auto) 4.7 Absolute Nucleated RBC 0.000 Nucleated RBC % (auto) 0.0 ESR 11 Anion Gap 13 Estim Creat Clear Calc 77.9 Estimated GFR > 60 POC Glucose 139 H Random Glucose 179 H Lactic Acid 1.6 Calcium 9.4 C-Reactive Protein 0.75 H 08/28/23 08/29/23 08/29/23 20:49 05:54 08:03 MCV 87.8 MCH 28.3 MCHC 32.2 RDW 15.6 Plt Count 278 MPV 9.4 Immature Gran % (Auto) Neut % (Auto) Lymph % (Auto) Benson % (Auto) Eos % (Auto) Baso % (Auto) Lymph # (Auto) Benson # (Auto) Eos # (Auto) Baso # (Auto) Abs Immat Gran (auto) Absolute Neuts (auto) Absolute Nucleated RBC 0.000 Nucleated RBC % (auto) 0.0 ESR Anion Gap 12 Estim Creat Clear Calc 89.9 Estimated GFR > 60 POC Glucose 164 H 139 H Random Glucose 130 H Lactic Acid Calcium 8.8 D C-Reactive Protein Assessment and Plan (1) Diabetes mellitus type 2 in obese: Status: Acute (2) Diabetic ulcer of heel: Status: Acute Plan d2 58yo F long-term resident of [facility] with DM2 s/p L BKA, HTN, chronic pain on methadone + hydromorphone, urinary retention with chronic [place] anxiety/depression, tobacco abuse, and chronic RLE wounds presenting with cellulitis of RLE and concern of R heel ulcer infection infected diabetic ulcer of R heel with cellulitis, not septic - continue vanc + pip-susy 08/28-. follow BCx + blood culture. cannot do MRI, will get CT with contrast to r/o underlying osteomyelitis. inflammatory markers low. wound care consultation HTN - lisinopril HLD - statin DM2 - basal-bolus insulin tobacco abuse - NRT chronic pain - methadone, hydromorphone, gabapentin, baclofen, tizanidine as per outpt dosing urinary retention - oxybutynin, [place] mood disorder - clonazepam, hydroxyzine, topiramate, trazodone GERD - famotidine VTE prophylaxis - LMWH dispo - eventual return to LTC @ [facility] In my clinical judgment, the patient requires continued inpatient hospitalization for the following reasons: IV ABX Time Spent With Patient Time: Total time managing care of this patient today ____40 minutes. Quality Stroke Does the patient have a stroke diagnosis?: No VTE Prior VTE?: No VTE Risk Level:: Medical - moderate - high VTE Device Contraindication: Procedure Contraindicated VTE Drug Contraindication: N/A - Med Ordered
[2023-08-29 11:31] LABS: Glucose, Whole Blood 199 mg/dL (60-115)
[2023-08-29] MEDS: Nicotine 14 MG PATCH.TD24 TRANSDERMA (11:55)
[2023-08-29 13:23] LABS: Vancomycin Random 15.7 mcg/mL (15-20)
--- NOTE | 2023-08-29 13:52 | HE.PHANOTE ---
RE VANCO DOSING SCR 0.61 AND LEVEL AFTER 2 DOSES IS 15.7. WILL CONTINUE DAILY CREATININE AND RECHECK TROUGH 08/30@1300 TO ENSURE SAFETY AND EFFICACY. INSIGHT SWITCHED TO OBESE MODELING IT MORE CLOSELY RESEMBLES THE CURRENT LEVEL FOR THIS PATIENT. EXPECTED AUC 516 WITH TROUGH 16.9 BUT MAY GO SLIGHTLY HIGHER PATIENT IS ALREADY HIGHER THAN HER EXPECTED TROUGH AT THIS POINT.
[2023-08-29 15:28] VITALS: BP 105/69; PULSE 65; RESP 18; TEMP 36.7; O2SAT 91
[2023-08-29 16:27] LABS: Glucose, Whole Blood 116 mg/dL (60-115)
[2023-08-29 20:00] VITALS: BP 143/63; PULSE 69; RESP 20; TEMP 36.2; O2SAT 97
[2023-08-29 20:58] LABS: Glucose, Whole Blood 167 mg/dL (60-115)
[2023-08-29] MEDS: traZODone HCL 50 MG TABLET PO (22:13)
[2023-08-29] MEDS: hydrOXYzine HCL 50 MG TABLET 100 MG PO (22:13)
[2023-08-29] MEDS: Atorvastatin Calcium 10 MG TABLET PO (22:13)
[2023-08-29] MEDS: oxyBUTYnin chloride 5 MG TABLET PO (22:14)
[2023-08-29] MEDS: Melatonin 3 MG TABLET 9 MG PO (22:18)
[2023-08-29] MEDS: Insulin Lispro 100 UNIT/ML 3 ML VIAL SUBCUT (22:19)
[2023-08-29] MEDS: Insulin Glargine,Hum.rec.anlog 100 UNIT/ML 10 ML VIAL 10 UNIT SUBCUT (22:20)
[2023-08-30] MEDS: Piperacillin Sodium/Tazobactam 3.375 GM in 0.9 % Sodium Chloride 50 ML IV ×3 (02:28→20:48)
[2023-08-30] MEDS: vancomycin HCL 1,000 MG in 0.9 % Sodium Chloride 250 ML 270 MG IV (03:01)
[2023-08-30 03:08] VITALS: BP 134/65; PULSE 80; RESP 19; TEMP 36.2; O2SAT 92
--- NOTE | 2023-08-30 04:09 | PC.NURSE ---
Approximately around 22:00, after RIA bedtime medications were given to pt with another RN , pt became more agitated, trying to get out of bed, being verbally abusive to staff when redirected to lay back down. . Pt insisted to sit on the edge of the bed, so an staff member stayed with pt at bedside to keep pt safe due to pt's hx of L BKA and R leg cellulitis (high fall risk pt). Afterwards pt went back to lying in bed without any resistive to care. Pt has been resistive to care and requires frequent redirection throughout the shift. Will continue to monitor pt's behavior.
[2023-08-30 05:47] LABS: Creatinine Clr Calc Pharmacy 79.5; Estimated Glomerular Filt Rate > 60
[2023-08-30 07:29] VITALS: BP 186/95; PULSE 70; RESP 20; TEMP 36.3; O2SAT 99
[2023-08-30 07:51] LABS: Glucose, Whole Blood 129 mg/dL (60-115)
--- NOTE | 2023-08-30 09:35 | HO.PM.IMPN ---
Subjective Subjective Date of Service: 08/30/23 Interval History: C/o R foot pain no fever Review of Systems Review of Systems: Yes all other systems are reviewed and are negative Physical Exam Vital Signs: Vital Signs: Last Vital Signs Temp 97.3 F 08/30/23 07:29 Pulse 70 08/30/23 07:29 Resp 20 08/30/23 07:29 BP 186/95 H 08/30/23 07:29 Pulse Ox 99 08/30/23 07:29 O2 Del Method Room Air 08/30/23 07:29 BMI result Body Mass Index 37.0 Gen: in no acute distress HEENT: sclera anicteric, moist mucus membranes Neck: supple Lungs: clear to auscultation bilaterally Heart: regular rate and rhythm, no murmurs Abd: soft, non-tender, non-distended Ext: s/p L BKA. RLE with improving erythema and induration from proximal calf/schwab inferiorly with lateral ulcers that are draining; large ulcer over R heel Skin: warm/well-perfused Neuro: alert and oriented x3, no focal findings Psych: appropriate affect Objective Data Active Medications Acetaminophen (Acetaminophen 325 Mg Tablet) 650 mg PO Q6H PRN PRN Reason: Pain, Mild (Pain Scale 1-3) Aspirin (Aspirin Enteric Coated 81 Mg Tablet.) 81 mg PO DAILY [facility] Last Admin: 08/29/23 08:59 Dose: 81 mg Documented By: AMY Atorvastatin Calcium (Atorvastatin Calcium 10 Mg Tablet) 10 mg PO BEDTIME [facility] Last Admin: 08/29/23 22:13 Dose: 10 mg Documented By: KWAME Baclofen (Baclofen 10 Mg Tablet) 15 mg PO TID [facility] Last Admin: 08/29/23 22:15 Dose: 15 mg Documented By: KWAME Chlorhexidine Gluconate (Chlorhexidine Gluc Oral Rinse 15 Ml Mouthwash) 15 ml BUCCAL BID [facility] Last Admin: 08/29/23 22:20 Dose: Not Given Documented By: KWAME Non-Admin Reason: Patient Refused Clonazepam (Clonazepam 0.5 Mg Tablet) 0.5 mg PO BID [facility] Last Admin: 08/29/23 22:14 Dose: 0.5 mg Documented By: KWAME Dextrose (Dextrose 50 % 25 Gm/50 Ml Syringe) 25 gm IVPUSH Q15M PRN; Protocol PRN Reason: per Hypoglycemia Standing Ord. Enoxaparin Sodium (Enoxaparin Sodium 40 Mg/0.4 Ml Syringe) 40 mg SUBCUT Q24H [facility] Last Admin: 08/29/23 18:04 Dose: Not Given Documented By: AMY Non-Admin Reason: Patient Asleep Famotidine (Famotidine 20 Mg Tablet) 20 mg PO DAILY [facility] Last Admin: 08/29/23 08:57 Dose: 20 mg Documented By: AMY Gabapentin (Gabapentin 400 Mg Capsule) 800 mg PO TID [facility] Last Admin: 08/29/23 22:13 Dose: 800 mg Documented By: KWAME Glucose (Glucose Gel 15 Gm Gel..Gram.) 15 gm PO Q15M PRN; Protocol PRN Reason: per Hypoglycemia Standing Ord. Hydromorphone HCl (Hydromorphone Hcl 4 Mg Tablet) 8 mg PO TID [facility] Last Admin: 08/29/23 22:14 Dose: 8 mg Documented By: KWAME Hydromorphone HCl (Hydromorphone Hcl 4 Mg Tablet) 8 mg PO Q12H PRN PRN Reason: Pain, Severe (Pain Scale 7-10) Last Admin: 08/29/23 05:48 Dose: 8 mg Documented By: KWAME Hydroxyzine HCl (Hydroxyzine Hcl 50 Mg Tablet) 100 mg PO BEDTIME [facility] Last Admin: 08/29/23 22:13 Dose: 100 mg Documented By: KWAME Vancomycin HCl 1,000 mg/ (Sodium Chloride) 270 mls @ 270 mls/hr IV Q12H [facility] Last Infusion: 08/30/23 04:06 Dose: Infused Documented By: KWAME Piperacillin Sod/Tazobactam (Sod 3.375 gm/ Sodium Chloride) 50 mls @ 100 mls/hr IV Q6H [facility] Last Infusion: 08/30/23 03:00 Dose: Infused Documented By: KWAME Insulin Glargine (Insulin Glargine,Hum.Rec.Anlog 100 Unit/Ml 10 Ml Vial) 10 unit SUBCUT BEDTIME [facility] Last Admin: 08/29/23 22:20 Dose: 10 unit Documented By: KWAME Insulin Human Lispro (Insulin Lispro 100 Unit/Ml 3 Ml Vial) 0 unit SUBCUT QIDACHS [facility]; Protocol Last Admin: 08/30/23 07:57 Dose: Not Given Documented By: AMY Non-Admin Reason: No Insulin Coverage Lisinopril (Lisinopril 2.5 Mg Tablet) 2.5 mg PO DAILY [facility]; Protocol Last Admin: 08/29/23 08:58 Dose: 2.5 mg Documented By: AMY Loperamide HCl (Loperamide Hcl 2 Mg Capsule) 2 mg PO Q6H PRN PRN Reason: Loose Stool Melatonin (Melatonin 3 Mg Tablet) 9 mg PO BEDTIME PRN PRN Reason: Insomnia Last Admin: 08/29/23 22:18 Dose: 9 mg Documented By: KWAME Methadone HCl (Methadone Hcl 20 Mg/2 Ml Oral.Conc) 150 mg PO DAILY [facility] Last Admin: 08/29/23 08:53 Dose: 150 mg Documented By: AMY Multivitamins/Vitamin C (Multivitamin Tablet) 1 tab PO DAILY [facility] Last Admin: 08/29/23 08:56 Dose: 1 tab Documented By: AMY Nicotine (Nicotine 14 Mg Patch.Td24) 14 mg TRANSDERMA DAILY [facility] Last Admin: 08/29/23 11:55 Dose: 14 mg Documented By: AMY Ondansetron HCl (Ondansetron Hcl 4 Mg/2 Ml Vial) 4 mg IVPUSH Q8H PRN PRN Reason: Nausea and Vomiting Oxybutynin Chloride (Oxybutynin Chloride 5 Mg Tablet) 5 mg PO BEDTIME [facility] Last Admin: 08/29/23 22:14 Dose: 5 mg Documented By: KWAME Pharmacy Consult (Consult Rx Vancomycin Dosing) 1 each MISCELLANE DAILY PRN PRN Reason: Consult order Polyethylene Glycol (Polyethylene Glycol 3350 17 Gm Powd.Pack) 17 gm PO DAILY [facility] Last Admin: 08/29/23 12:00 Dose: Not Given Documented By: AMY Non-Admin Reason: Patient Refused Senna (Sennosides 8.6 Mg Tablet) 8.6 mg PO BID [facility] Last Admin: 08/29/23 22:20 Dose: Not Given Documented By: KWAME Non-Admin Reason: Patient Refused Sodium Chloride (0.9 % Sodium Chloride Flush 3 Ml Syringe) 3 ml IVFLUSH QSHIFT [facility] Last Admin: 08/29/23 22:24 Dose: 3 ml Documented By: KWAME Thiamine HCl (Thiamine Hcl 100 Mg Tablet) 100 mg PO DAILY [facility] Last Admin: 08/29/23 09:00 Dose: 100 mg Documented By: AMY Tizanidine HCl (Tizanidine Hcl 4 Mg Tablet) 2 mg PO TID [facility] Last Admin: 08/29/23 22:16 Dose: 2 mg Documented By: KWAME Topiramate (Topiramate 25 Mg Tablet) 25 mg PO DAILY [facility] Last Admin: 08/29/23 08:56 Dose: 25 mg Documented By: AMY Trazodone HCl (Trazodone Hcl 50 Mg Tablet) 50 mg PO BEDTIME [facility] Last Admin: 08/29/23 22:13 Dose: 50 mg Documented By: KWAME Labs 08/29/23 05:54 08/30/23 05:07 Labs: Laboratory Results - last 24 hr 08/29/23 08/29/23 08/29/23 11:27 13:00 16:22 Hold Purple Top Estim Creat Clear Calc Estimated GFR POC Glucose 199 H 116 H Random Vancomycin 15.7 08/29/23 08/30/23 08/30/23 20:49 05:07 07:33 Hold Purple Top SEE NOTE Estim Creat Clear Calc 79.5 Estimated GFR > 60 POC Glucose 167 H 129 H Random Vancomycin Microbiology Microbiology Results: Microbiology 08/28/23 13:23 Blood Culture - Preliminary Blood - Venous No growth after 24 hours. 08/28/23 13:23 Blood Culture - Preliminary Blood - Venous No growth after 24 hours. 08/28/23 10:20 Gram Stain - Final Heel, Right Routine Culture - Preliminary Culture in progress. Anaerobic Culture - Preliminary Culture in progress. Assessment and Plan (1) Diabetes mellitus type 2 in obese: Status: Acute (2) Diabetic ulcer of heel: Status: Acute Plan d3 58yo F long-term resident [facility] with DM2 s/p L BKA, HTN, chronic pain on methadone + hydromorphone, urinary retention with chronic [place] anxiety/depression, tobacco abuse, and chronic RLE wounds presenting with cellulitis of RLE and concern of R heel ulcer infection infected diabetic ulcer of R heel with cellulitis, not septic - continue vanc + pip-susy 08/28-. follow BCx + wound culture. cannot do MRI, will get CT with contrast to r/o underlying osteomyelitis. cannot inject contrast into EJ per department policy so will get midline in AM. inflammatory markers low. wound care consultation pending and will need WCC f/u - arterial Duplex ordered HTN - lisinopril HLD - statin DM2 - basal-bolus insulin tobacco abuse - NRT chronic pain - methadone, hydromorphone, gabapentin, baclofen, tizanidine as per outpt dosing urinary retention - oxybutynin, [place] mood disorder - clonazepam, hydroxyzine, topiramate, trazodone GERD - famotidine VTE prophylaxis - LMWH dispo - eventual return to LTC @ [facility] In my clinical judgment, the patient requires continued inpatient hospitalization for the following reasons: IV ABX, r/o osteomyelitis Time Spent With Patient Time: Total time managing care of this patient today __35__ minutes. Quality Stroke Does the patient have a stroke diagnosis?: No VTE Prior VTE?: No VTE Risk Level:: Medical - moderate - high VTE Device Contraindication: Procedure Contraindicated VTE Drug Contraindication: N/A - Med Ordered
[2023-08-30] MEDS: methADONE HCl 20 MG/2 ML ORAL.CONC 150 MG PO (09:55)
[2023-08-30] MEDS: Nicotine 14 MG PATCH.TD24 TRANSDERMA (10:07)
[2023-08-30] MEDS: clonazePAM 0.5 MG TABLET PO ×2 (10:08→20:46)
[2023-08-30] MEDS: Gabapentin 400 MG CAPSULE 800 MG PO ×3 (10:09→20:46)
[2023-08-30] MEDS: Famotidine 20 MG TABLET PO (10:09)
--- NOTE | 2023-08-30 10:25 | PC.NURSE ---
Pt RN came to this senior mortgage underwriter to ask to help remove patients dressing. This senior mortgage underwriter entered the room to remove her dressing on her right leg, pt concented to remove dressing. Upon removing dressing patient yelled ouch. Small amount of SS Drainage, no odor, leg is swollen and red. Pt then asked to sit up on the edge of the bed, this senior mortgage underwriter attemtped to sit up patient and she screamed and stated leave me alone, I want to talk with the Doctor. paged from [facility].
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
--- NOTE | 2023-08-30 11:04 | PC.NURSE ---
Approximately 1010, patient became agitated when this machine sign writer was removing her soiled dressing from her right lower extremity. Patient reported pain with dressing removal and requested to stop. This machine sign writer immediately ceased removing the dressing. Patient then stated if anyone touches comes near it again, I'm going to punch them in the face , demanded another nurse to help her with the dressing removal and to sit her up, and refused morning antibiotics. This machine sign writer obtained another nurse who assisted with these requests. Patient began yelling at staff and making false accusations. Patient claimed the second RN aggressively ripped off the dressing. This machine sign writer was witness to this situation, and observed the second RN remove the dressing with caution. Patient demanded to speak with her doctor and threatened to leave against medical advice if she did not get to speak to him. notified at 1026. Security called due to patient's escalating behavior. Security, second RN, nursing non destructive testing supervisor, and this machine sign writer attempted to verbally redirect the patient. Patient's continued yelling and was not receptive redirection. notified security was present. arrived at bedside and discussed care with patient.
[2023-08-30 11:30] LABS: Glucose, Whole Blood 168 mg/dL (60-115)
[2023-08-30 13:28] LABS: Vancomycin Random 17.3 mcg/mL (15-20)
--- NOTE | 2023-08-30 13:36 | HE.PHANOTE ---
RE: LAUREN Patients level came back this afternoon at 17.3. Will continue with current dose of 1000 mg Q12H, next draw 08/31 @1300
[2023-08-30 15:06] VITALS: BP 186/98; PULSE 81; RESP 17; TEMP 36.6; O2SAT 96
[2023-08-30] MEDS: TiZANidine HCL 4 MG TABLET 2 MG PO ×2 (15:33→20:47)
[2023-08-30] MEDS: Baclofen 10 MG TABLET 15 MG PO ×2 (15:33→20:47)
[2023-08-30 16:07] LABS: Glucose, Whole Blood 212 mg/dL (60-115)
[2023-08-30] MEDS: 0.9 % Sodium Chloride Flush 3 ML SYRINGE IVFLUSH ×2 (16:46→20:49)
[2023-08-30 19:28] VITALS: BP 137/78; PULSE 67; RESP 18; TEMP 36.6; O2SAT 92
[2023-08-30 20:26] LABS: Glucose, Whole Blood 180 mg/dL (60-115)
[2023-08-30] MEDS: hydrOXYzine HCL 50 MG TABLET 100 MG PO (20:46)
[2023-08-30] MEDS: Sennosides 8.6 MG TABLET PO (20:47)
[2023-08-30] MEDS: traZODone HCL 50 MG TABLET PO (20:47)
[2023-08-30] MEDS: Atorvastatin Calcium 10 MG TABLET PO (20:47)
[2023-08-30] MEDS: oxyBUTYnin chloride 5 MG TABLET PO (20:47)
[2023-08-30] MEDS: Insulin Lispro 100 UNIT/ML 3 ML VIAL SUBCUT (20:48)
[2023-08-30] MEDS: Chlorhexidine Gluc Oral Rinse 15 ML MOUTHWASH BUCCAL (20:48)
[2023-08-30] MEDS: Insulin Glargine,Hum.rec.anlog 100 UNIT/ML 10 ML VIAL 10 UNIT SUBCUT (20:48)
[2023-08-31] MEDS: Piperacillin Sodium/Tazobactam 3.375 GM in 0.9 % Sodium Chloride 50 ML IV ×4 (03:54→20:31)
[2023-08-31 04:00] VITALS: BP 128/88; PULSE 66; RESP 18; TEMP 36.4; O2SAT 94
[2023-08-31] MEDS: vancomycin HCL 1,000 MG in 0.9 % Sodium Chloride 250 ML 270 MG IV ×2 (04:42→18:40)
--- NOTE | 2023-08-31 06:57 | HO.SKINPHOTO ---
Location: Category: Stage: Length: Width: Depth: cm Location: Category: Stage: Length: Width: Depth: cm Location: Category: Stage: Length: Width: Depth: cm Location: Category: Stage: Length: Width: Depth: cm Location: Category: Stage: Length: Width: Depth: cm Location: L gluteal fold/buttock Category: Stage: Length: Width: Depth: cm Pt skin assessed after refusing to allow day shift RN to perform skin assessment. Dressing noted to left buttock/gluteal fold. Pt allowed this RN to remove dsg. Packed gauze removed from wound with green/yellow/schmitz drainage. Cleansed wound. Pt would not allow this RN to pack wound, would only allow for a pink foam to be placed to cover the area. Gandy foam in place. Oncoming RN aware.
[2023-08-31 06:58] VITALS: BP 190/90; PULSE 98; RESP 18; TEMP 36.6; O2SAT 96
[2023-08-31 07:14] LABS: Creatinine Clr Calc Pharmacy 85.7; Estimated Glomerular Filt Rate > 60
[2023-08-31 07:44] VITALS: BP 150/90
[2023-08-31] MEDS: methADONE HCl 20 MG/2 ML ORAL.CONC 150 MG PO (08:08)
[2023-08-31] MEDS: Gabapentin 400 MG CAPSULE 800 MG PO ×3 (08:27→20:17)
[2023-08-31] MEDS: Nicotine 14 MG PATCH.TD24 TRANSDERMA (08:28)
[2023-08-31] MEDS: clonazePAM 0.5 MG TABLET PO ×2 (08:30→20:19)
[2023-08-31] MEDS: Thiamine HCL 100 MG TABLET PO (08:30)
[2023-08-31] MEDS: Famotidine 20 MG TABLET PO (08:30)
[2023-08-31] MEDS: lisinopriL 2.5 MG TABLET PO (08:30)
[2023-08-31] MEDS: Topiramate 25 MG TABLET PO (08:30)
[2023-08-31] MEDS: Multivitamin TABLET 1 TAB PO (08:30)
[2023-08-31] MEDS: Aspirin Enteric Coated 81 MG TABLET.DR PO (08:31)
[2023-08-31] MEDS: Chlorhexidine Gluc Oral Rinse 15 ML MOUTHWASH BUCCAL ×2 (08:31→20:23)
[2023-08-31] MEDS: TiZANidine HCL 4 MG TABLET 2 MG PO ×3 (08:32→20:20)
[2023-08-31] MEDS: Baclofen 10 MG TABLET 15 MG PO ×3 (08:33→20:21)
[2023-08-31] MEDS: 0.9 % Sodium Chloride Flush 3 ML SYRINGE IVFLUSH ×2 (08:49→15:38)
[2023-08-31 08:59] LABS: Glucose, Whole Blood 190 mg/dL (60-115)
[2023-08-31 11:19] LABS: Glucose, Whole Blood 159 mg/dL (60-115)
--- NOTE | 2023-08-31 11:22 | HO.WOUND ---
Addendum entered by Zora Mcmullen RN 08/31/23 11:46: Pt should continue to follow up with [facility] for continue treatment and care. Original Note: Wound Consult: Initial 58yr old [place] [facility] 16:20 - See progress notes and H&P for detailed history. Arrival to bedside pt was initially agreeable to consultation - she quickly became anxious and agitated with the treatment options and assessment. She resisted discussion and became angry and yelling when trying to complete care. Active and uspportive listening provided and she became agreeable to reatment but refused Durafiber AG and reported allergy. She was not able to detail how she was allergic when questions. I discussed using xeroform to help moisten the wound bed and allow for autolytic debridement - she again got angry and refused - I attempted to educate her on the benefits of moist wound healing - she refused - she reported she was agreeable to Wound gel and Vaseline application. Wound gel will aid the dry heel and leg wounds to allow for autolytic debridement and moist wound healing. 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 We discussed off loading pressure and she was not agreeable to repositioning - direct care team advised to contnue to offer off loading in the effort to reposition when she is agreeable. We discussed my role in helping her o heal and aid in comfort - she reports understanding. She was agreeable to my follow up in the future. Left Buttocks / Ischium Etiology: Stage 4 Pressure Injury POA Measurements: 1cm x 1.5cm x 5cm Wound Bed: appears clean and moist - red moist tissue with scattered are of yellow white adherent slough Drainage / Odor: Moderate amount of serosang drainage - no odor noted Edges: ? Macerated and epibole Radha wound: ?Red macerated tissue Periwound Induration Noted, No Fluctuance, and No Warmth noted Pain: Pt reports pain Goals of Treatment: ? Packing and autolytic debridement Right Lateral Heel Etiology: Diabetic Foot Wound Measurements: 3cm x 3cm x 0.2cm Wound Bed: pink dry wound bed with scattered areas of yellow moist slough Drainage / Odor: Small amount of yellow drainage - no odor noted Edges: ? Epibole Radha wound: callused and red erythema ? No Induration, No Fluctuance Pain: Pt reports extreme pain Goals of Treatment: ?Moist wound healing to allow for autolytic debridement Right Medial Heel Etiology: Diabetic Foot Wound Measurements: 1cm x 1cm x 0.2cm Wound Bed: Dry red wound bed Drainage / Odor: None Edges: ? callused and epibole Radha wound: ? Callused and red No Induration, No Fluctuance noted, Red Erythema Pain: Pt reports pain Goals of Treatment: ? Moist wound healing to allow for autolytic debridement Right Lower Leg Etiology: Venous Dermatitis Wound Measurements: 9cm x 5cm x 0.2cm Wound Bed: dry red wound bed and dry adherent yellow slough Drainage / Odor: None Edges: ?irregualr Radha wound: ? Red dry evidence of significant decrease in swelling No Induration, No Fluctuance noted, Red Erythema Pain: Pt reports pain Goals of Treatment: ? Moist wound healing to allow for autolytic debridement Recommendations: 1. Turn and Reposition every 2 hours and as needed for patient comfort consider use of wedges available in the storeroom. 2. Off Load all bony prominences with use of pillows, wedges and heel boots. 3. Monitor for incontinence and moisture control. 4. Provide adequate and supplemental nutrition. 5. Order or Continue low air loss mattress. 6. Maintain blood glucose levels per Providers orders. 7. Left Buttocks / Ischium - Off Load Pressure - Cleanse and irrigate with saline, apply Triad to periwound (skin prep if pt is not agreeable). Lightly pacl wound bed with plain packing strip be sure to leave a wick for easy removal. Cover with Dry Foam dressing. Change daily. 8. Right Lower Leg - Off Load Pressure off of bed surface - Cleanse lower leg with saline moist gauze, pay dry. Apply Vaseline to Lower Leg, Cover wound beds with Thick layer of Wound Gel - cover with dry gauze , ABD pads and gauze wrap. Change daily. Re-consult wound care Nurse for wound deterioration or wound changes.
--- NOTE | 2023-08-31 13:17 | HO.PM.IMPN ---
Subjective Subjective Date of Service: 08/31/23 Interval History: Offers no acute complaints, good pain control on current medications, initially refused vancomycin but later agreed to take antibiotics, explained to patient about need for midline followed by CT foot to rule out osteomyelitis patient is agreeable to plan, no fevers no chills tolerating diet no other acute issues overnight. Review of Systems All other system reviewed and negative Physical Exam Vital Signs: Vital Signs: Last Vital Signs Temp 98 F 08/31/23 06:58 Pulse 98 08/31/23 06:58 Resp 18 08/31/23 06:58 BP 150/90 H 08/31/23 07:44 Pulse Ox 96 08/31/23 06:58 O2 Del Method Room Air 08/31/23 06:58 BMI result Body Mass Index 37.0 Const: Other: Gen: Awake alert x3, in no acute distress HEENT: sclera anicteric, moist mucus membranes Neck: supple, no JVD Lungs: clear to auscultation bilaterally Heart: regular rate and rhythm, no murmurs Abd: soft, non-tender, non-distended Ext: s/p L BKA. RLE persistent erythema and induration from proximal calf/schwab inferiorly with lateral ulcers that are draining; large ulcer over R heel see wound nurse report for detail Skin: warm/well-perfused Neuro: alert and oriented x3, no focal findings Psych: appropriate affect Objective Data Active Medications Acetaminophen (Acetaminophen 325 Mg Tablet) 650 mg PO Q6H PRN PRN Reason: Pain, Mild (Pain Scale 1-3) Aspirin (Aspirin Enteric Coated 81 Mg Tablet.) 81 mg PO DAILY [facility] Last Admin: 08/31/23 08:31 Dose: 81 mg Documented By: AYM Atorvastatin Calcium (Atorvastatin Calcium 10 Mg Tablet) 10 mg PO BEDTIME [facility] Last Admin: 08/30/23 20:47 Dose: 10 mg Documented By: BILLIE Baclofen (Baclofen 10 Mg Tablet) 15 mg PO TID [facility] Last Admin: 08/31/23 08:33 Dose: 15 mg Documented By: AMY Chlorhexidine Gluconate (Chlorhexidine Gluc Oral Rinse 15 Ml Mouthwash) 15 ml BUCCAL BID [facility] Last Admin: 08/31/23 08:31 Dose: 15 ml Documented By: AMY Clonazepam (Clonazepam 0.5 Mg Tablet) 0.5 mg PO BID [facility] Last Admin: 08/31/23 08:30 Dose: 0.5 mg Documented By: AMY Dextrose (Dextrose 50 % 25 Gm/50 Ml Syringe) 25 gm IVPUSH Q15M PRN; Protocol PRN Reason: per Hypoglycemia Standing Ord. Enoxaparin Sodium (Enoxaparin Sodium 40 Mg/0.4 Ml Syringe) 40 mg SUBCUT Q24H [facility] Last Admin: 08/30/23 19:19 Dose: Not Given Documented By: AMY Non-Admin Reason: Patient Refused Famotidine (Famotidine 20 Mg Tablet) 20 mg PO DAILY [facility] Last Admin: 08/31/23 08:30 Dose: 20 mg Documented By: AMY Gabapentin (Gabapentin 400 Mg Capsule) 800 mg PO TID [facility] Last Admin: 08/31/23 08:27 Dose: 800 mg Documented By: AMY Glucose (Glucose Gel 15 Gm Gel..Gram.) 15 gm PO Q15M PRN; Protocol PRN Reason: per Hypoglycemia Standing Ord. Hydromorphone HCl (Hydromorphone Hcl 4 Mg Tablet) 8 mg PO TID [facility] Last Admin: 08/31/23 08:18 Dose: 8 mg Documented By: AMY Hydromorphone HCl (Hydromorphone Hcl 4 Mg Tablet) 8 mg PO Q12H PRN PRN Reason: Pain, Severe (Pain Scale 7-10) Last Admin: 08/30/23 18:06 Dose: 8 mg Documented By: AMY Hydroxyzine HCl (Hydroxyzine Hcl 50 Mg Tablet) 100 mg PO BEDTIME [facility] Last Admin: 08/30/23 20:46 Dose: 100 mg Documented By: BILLIE Piperacillin Sod/Tazobactam (Sod 3.375 gm/ Sodium Chloride) 50 mls @ 100 mls/hr IV Q6H [facility] Last Infusion: 08/31/23 09:52 Dose: Infused Documented By: AMY Vancomycin HCl 1,000 mg/ (Sodium Chloride) 270 mls @ 270 mls/hr IV Q12H [facility] Insulin Glargine (Insulin Glargine,Hum.Rec.Anlog 100 Unit/Ml 10 Ml Vial) 10 unit SUBCUT BEDTIME [facility] Last Admin: 08/30/23 20:48 Dose: 10 unit Documented By: BILLIE Insulin Human Lispro (Insulin Lispro 100 Unit/Ml 3 Ml Vial) 0 unit SUBCUT QIDACHS [facility]; Protocol Last Admin: 08/31/23 11:34 Dose: Not Given Documented By: AMY Non-Admin Reason: Patient Refused Lisinopril (Lisinopril 2.5 Mg Tablet) 2.5 mg PO DAILY [facility]; Protocol Last Admin: 08/31/23 08:30 Dose: 2.5 mg Documented By: AMY Loperamide HCl (Loperamide Hcl 2 Mg Capsule) 2 mg PO Q6H PRN PRN Reason: Loose Stool Melatonin (Melatonin 3 Mg Tablet) 9 mg PO BEDTIME PRN PRN Reason: Insomnia Last Admin: 08/29/23 22:18 Dose: 9 mg Documented By: KWAME Methadone HCl (Methadone Hcl 20 Mg/2 Ml Oral.Conc) 150 mg PO DAILY [facility] Last Admin: 08/31/23 08:08 Dose: 150 mg Documented By: AMY Multivitamins/Vitamin C (Multivitamin Tablet) 1 tab PO DAILY [facility] Last Admin: 08/31/23 08:30 Dose: 1 tab Documented By: AMY Nicotine (Nicotine 14 Mg Patch.Td24) 14 mg TRANSDERMA DAILY [facility] Last Admin: 08/31/23 08:28 Dose: 14 mg Documented By: AMY Ondansetron HCl (Ondansetron Hcl 4 Mg/2 Ml Vial) 4 mg IVPUSH Q8H PRN PRN Reason: Nausea and Vomiting Oxybutynin Chloride (Oxybutynin Chloride 5 Mg Tablet) 5 mg PO BEDTIME [facility] Last Admin: 08/30/23 20:47 Dose: 5 mg Documented By: BILLIE Pharmacy Consult (Consult Rx Vancomycin Dosing) 1 each MISCELLANE DAILY PRN PRN Reason: Consult order Polyethylene Glycol (Polyethylene Glycol 3350 17 Gm Powd.Pack) 17 gm PO DAILY [facility] Last Admin: 08/31/23 09:52 Dose: Not Given Documented By: AMY Non-Admin Reason: Patient Refused Senna (Sennosides 8.6 Mg Tablet) 8.6 mg PO BID [facility] Last Admin: 08/31/23 09:52 Dose: Not Given Documented By: AMY Non-Admin Reason: Patient Refused Sodium Chloride (0.9 % Sodium Chloride Flush 3 Ml Syringe) 3 ml IVFLUSH QSHIFT [facility] Last Admin: 08/31/23 08:49 Dose: 3 ml Documented By: AMY Thiamine HCl (Thiamine Hcl 100 Mg Tablet) 100 mg PO DAILY [facility] Last Admin: 08/31/23 08:30 Dose: 100 mg Documented By: AMY Tizanidine HCl (Tizanidine Hcl 4 Mg Tablet) 2 mg PO TID [facility] Last Admin: 08/31/23 08:32 Dose: 2 mg Documented By: AMY Topiramate (Topiramate 25 Mg Tablet) 25 mg PO DAILY [facility] Last Admin: 08/31/23 08:30 Dose: 25 mg Documented By: AMY Trazodone HCl (Trazodone Hcl 50 Mg Tablet) 50 mg PO BEDTIME [facility] Last Admin: 08/30/23 20:47 Dose: 50 mg Documented By: BILLIE Labs 08/29/23 05:54 08/31/23 06:04 Labs: Laboratory Results - last 24 hr 08/30/23 08/30/23 08/30/23 13:10 16:03 20:21 Estim Creat Clear Calc Estimated GFR POC Glucose 212 H 180 H Random Vancomycin 17.3 08/31/23 08/31/23 08/31/23 06:04 08:54 11:04 Estim Creat Clear Calc 85.7 Estimated GFR > 60 POC Glucose 190 H 159 H Random Vancomycin Microbiology Microbiology Results: Microbiology 08/28/23 10:20 Gram Stain - Final Heel, Right Routine Culture - Final Staphylococcus aureus Morganella morganii ssp ariel Corynebacterium species Anaerobic Culture - Preliminary Culture in progress. 08/28/23 13:23 Blood Culture - Preliminary Blood - Venous No growth after 48 hours. 08/28/23 13:23 Blood Culture - Preliminary Blood - Venous No growth after 48 hours. Assessment and Plan (1) Diabetes mellitus type 2 in obese: Status: Acute (2) Diabetic ulcer of heel: Status: Acute Plan 58yo F long-term resident of [facility] with DM2 s/p L BKA, HTN, chronic pain on methadone + hydromorphone, urinary retention with chronic [place] anxiety/depression, tobacco abuse, and chronic RLE wounds presenting with cellulitis of RLE and concern of R heel ulcer infection #infected diabetic ulcer of R heel with cellulitis, not septic on iv vanc + pip-susy 08/28-. follow BCx + wound culture. cannot do MRI, will get CT with contrast to r/o underlying osteomyelitis. cannot inject contrast into EJ per department policy so is scheduled for midline today, inflammatory markers low Arterial duplex done report pending Unknown allergy to iron Joel will premedicate prior to CT right foot Patient also with several wounds as below Stage IV pressure injury he has left buttock and ischium present on admission Right lateral heel 3 cm into 3 cm in to 0.2 cm wound Right medial heel 1 cm x 1 cm x 0.2 cm dry wound. Right lower leg venous dermatitis wound wound bed dry red with adherent yellow slough Seen by wound nurse will follow-up there instructions. 1. Turn and Reposition every 2 hours and as needed for patient comfort consider use of wedges available in the storeroom. 2. Off Load all bony prominences with use of pillows, wedges and heel boots. 3. Monitor for incontinence and moisture control. 4. Provide adequate and supplemental nutrition. 5. Order or Continue low air loss mattress. 6. Maintain blood glucose levels per Providers orders. 7. Give Benadryl IV 50 0 mg [address] foot give Benadryl HTN -suboptimal blood pressure control continue lisinopril and follow BP HLD - statin DM2 - blood sugars stable continue basal-bolus insulin tobacco abuse - NRT, counseling done chronic pain -good pain control, methadone, hydromorphone, gabapentin, baclofen, tizanidine as per outpt dosing urinary retention - oxybutynin, continue H[place] mood disorder - clonazepam, hydroxyzine, topiramate, and trazodone GERD - famotidine VTE prophylaxis - LMWH dispo - eventual return to LTC @ [facility] In my clinical judgment, the patient requires continued inpatient hospitalization for the following reasons: IV ABX, r/o osteomyelitis Time Spent With Patient Time: Total time managing care of this patient today ____ minutes. Quality Stroke Does the patient have a stroke diagnosis?: No VTE Prior VTE?: No VTE Risk Level:: Medical - moderate - high VTE Device Contraindication: Procedure Contraindicated VTE Drug Contraindication: N/A - Med Ordered
[2023-08-31 15:43] VITALS: BP 139/60; PULSE 66; RESP 18; TEMP 36.4; O2SAT 93
[2023-08-31 15:54] LABS: Glucose, Whole Blood 144 mg/dL (60-115)
--- NOTE | 2023-08-31 16:22 | PC.NURSE ---
Chronic indwelling urinary catheter present upon admission. Patient frequently resistant to care. Patient received indwelling urinary catheter wipes with teaching on appropriate use. Patient accepted the wipes and was receptive to education. Encouraged to perform care daily and PRN, and to request assistance if needed.
[2023-08-31 17:06] LABS: Vancomycin Random 12.6 mcg/mL (15-20)
--- NOTE | 2023-08-31 17:17 | HE.PHANOTE ---
RE LAUREN CONTINUE CURRENT DOSING REGIMEN. NEXT LEVEL DUE 09/01 @1500. OF NOTE PT REFUSED ONE DOSE SO LEVEL WOULD BE HIGHER PONCE
--- NOTE | 2023-08-31 18:21 | HO.MIDLINE_ITS ---
Midline Insertion MIDLINE INSERTION Diagnosis: Osteomyelitis Indication: ABT Pertinent Labs: Reviewed Technique: Using sterile technique including cap and mask, glove and drape, the right arm was prepped and draped in the usual sterile fashion of full barrier technique with CHG. Using ultrasound guidance, right basilic vein access was obtained . 20G x 8cmpowerglide ST midline was positioned. The procedure was performed in Rm 272. Ultrasound was used to document vein patency and for needle entry. A formal ultrasound picture was not recorded d/t printer issues but is logged in printer memory. Vascular Balance Wheel Screw Hole Tapper has released the line for use and it is currently dressed with a StatLock, Tegaderm, and CHG disc. Verification has been performed for blood return and line patency. Arm Circumference: 30cm Equipment: PowerGlide ST Midline Catheter Type: 20G x 8cm Lot #:[id number]
[2023-08-31] MEDS: Enoxaparin Sodium 40 MG/0.4 ML SYRINGE SUBCUT (18:36)
--- NOTE | 2023-08-31 18:45 | HO.MIDLINE ---
Midline Insertion MIDLINE INSERTION Diagnosis: Osteomyelitis Indication: ABT Pertinent Labs: Reviewed Technique: Using sterile technique including cap and mask, glove and drape, the right arm was prepped and draped in the usual sterile fashion of full barrier technique with CHG. Using ultrasound guidance, right basilic vein access was obtained . 20G x 8cm PowerGlide ST midline was positioned. The procedure was performed in room 272. Ultrasound was used to document vein patency and for needle entry. A formal ultrasound picture was not recorded d/t printer malfunction, but images were stored in printer memory. Vascular Occupational Health Physiotherapist has released the line for use and it is currently dressed with a StatLock, Tegaderm, and CHG disc. Verification has been performed for blood return and line patency. Arm Circumference: 30cm Equipment: PowerGlide ST Midline Catheter Type: 20G x 8 cm Lot #: [id number]
[2023-08-31 19:56] LABS: Glucose, Whole Blood 170 mg/dL (60-115)
[2023-08-31 20:00] VITALS: BP 171/5; PULSE 57; RESP 18; TEMP 36.3; O2SAT 95
[2023-08-31] MEDS: oxyBUTYnin chloride 5 MG TABLET PO (20:17)
[2023-08-31] MEDS: hydrOXYzine HCL 50 MG TABLET 100 MG PO (20:18)
[2023-08-31] MEDS: Sennosides 8.6 MG TABLET PO (20:18)
[2023-08-31] MEDS: traZODone HCL 50 MG TABLET PO (20:18)
[2023-08-31] MEDS: Insulin Lispro 100 UNIT/ML 3 ML VIAL SUBCUT (20:19)
[2023-08-31] MEDS: Insulin Glargine,Hum.rec.anlog 100 UNIT/ML 10 ML VIAL 10 UNIT SUBCUT (20:19)
[2023-08-31] MEDS: Atorvastatin Calcium 10 MG TABLET PO (20:19)
[2023-09-01] MEDS: 0.9 % Sodium Chloride Flush 3 ML SYRINGE IVFLUSH ×2 (00:07→20:28)
[2023-09-01] MEDS: Heparin Sodium,Porcine Flush 50 UNITS/5 ML SYRINGE IVFLUSH ×3 (00:07→16:45)
[2023-09-01] MEDS: Piperacillin Sodium/Tazobactam 3.375 GM in 0.9 % Sodium Chloride 50 ML IV ×3 (03:29→16:10)
[2023-09-01 03:38] VITALS: BP 153/73; PULSE 53; RESP 16; TEMP 36; O2SAT 92
[2023-09-01] MEDS: vancomycin HCL 1,000 MG in 0.9 % Sodium Chloride 250 ML 270 MG IV ×2 (04:51→16:42)
[2023-09-01 06:35] LABS: Creatinine Clr Calc Pharmacy 70.3; Estimated Glomerular Filt Rate > 60
[2023-09-01 06:57] VITALS: BP 141/84; PULSE 59; RESP 18; TEMP 36.1; O2SAT 92
[2023-09-01 07:06] LABS: Glucose, Whole Blood 152 mg/dL (60-115)
[2023-09-01] MEDS: methADONE HCl 20 MG/2 ML ORAL.CONC 150 MG PO (07:50)
[2023-09-01] MEDS: Nicotine 14 MG PATCH.TD24 TRANSDERMA (07:52)
[2023-09-01] MEDS: Chlorhexidine Gluc Oral Rinse 15 ML MOUTHWASH BUCCAL ×2 (07:52→21:50)
[2023-09-01] MEDS: Insulin Lispro 100 UNIT/ML 3 ML VIAL SUBCUT ×2 (07:52→16:45)
[2023-09-01] MEDS: Baclofen 10 MG TABLET 15 MG PO ×3 (07:53→20:34)
[2023-09-01] MEDS: TiZANidine HCL 4 MG TABLET 2 MG PO (07:54)
[2023-09-01] MEDS: Sennosides 8.6 MG TABLET PO ×2 (07:54→20:34)
[2023-09-01] MEDS: Thiamine HCL 100 MG TABLET PO (07:54)
[2023-09-01] MEDS: Gabapentin 400 MG CAPSULE 800 MG PO (07:54)
[2023-09-01] MEDS: Topiramate 25 MG TABLET PO (07:55)
[2023-09-01] MEDS: Famotidine 20 MG TABLET PO (07:55)
[2023-09-01] MEDS: Multivitamin TABLET 1 TAB PO (07:55)
[2023-09-01] MEDS: Aspirin Enteric Coated 81 MG TABLET.DR PO (07:55)
[2023-09-01] MEDS: lisinopriL 2.5 MG TABLET PO (07:55)
[2023-09-01] MEDS: clonazePAM 0.5 MG TABLET PO ×2 (08:59→20:34)
[2023-09-01] MEDS: methylPREDNISolone Sod Succ 40 MG/ML VIAL IVPUSH (09:42)
[2023-09-01 11:14] LABS: Glucose, Whole Blood 152 mg/dL (60-115)
--- NOTE | 2023-09-01 12:18 | MHC.CM.PN ---
PATIENT GETTING CT OF FOOT TODAY AND NO PLAN FOR DISCHARGE. [facility] UPDATED IN [facility].
[2023-09-01] MEDS: Naloxone HCl Nasal 4 MG SPRAY NOSTRILALT (12:22)
[2023-09-01] MEDS: diphenhydrAMINE HCL 50 MG/ML VIAL IVPUSH (14:10)
--- NOTE | 2023-09-01 14:59 | P.PNIM_ITS ---
Subjective Subjective Date of Service: 09/01/23 Interval History: This morning patient was awake alert, offered no acute complaints agreed for right heel CT scan, later in the day patient noted to be somnolent arousable with painful stimuli with slow respiratory rate, therefore treated with Narcan with good affect, patient denies nausea vomiting tolerating diet no fevers, no chills, no other acute issues. Review of Systems All other system reviewed and negative. Physical Exam 2 Vital Signs: Vital Signs: Last Vital Signs Temp 97 F 09/01/23 06:57 Pulse 59 09/01/23 06:57 Resp 18 09/01/23 06:57 BP 141/84 H 09/01/23 06:57 Pulse Ox 92 09/01/23 06:57 O2 Del Method Room Air 09/01/23 06:57 BMI result Body Mass Index 37.0 Const: Other: Gen: Awake alert x3, in no acute distress HEENT: sclera anicteric, moist mucus membranes Neck: supple, no JVD Lungs: clear to auscultation bilaterally Heart: regular rate and rhythm, no murmurs Abd: soft, non-tender, non-distended Ext: s/p L BKA. RLE persistent erythema and induration less pronounced, from proximal calf/schwab inferiorly with lateral ulcers that are draining; large ulcer over R heel see wound nurse report for detail Skin: warm/well-perfused Neuro: alert and oriented x3, no focal findings. Psych: appropriate affect Objective Data Active Medications Acetaminophen (Acetaminophen 325 Mg Tablet) 650 mg PO Q6H PRN PRN Reason: Pain, Mild (Pain Scale 1-3) Aspirin (Aspirin Enteric Coated 81 Mg Tablet.) 81 mg PO DAILY [facility] Last Admin: 09/01/23 07:55 Dose: 81 mg Documented By: SANNA Atorvastatin Calcium (Atorvastatin Calcium 10 Mg Tablet) 10 mg PO BEDTIME [facility] Last Admin: 08/31/23 20:19 Dose: 10 mg Documented By: LARY Baclofen (Baclofen 10 Mg Tablet) 15 mg PO TID [facility] Last Admin: 09/01/23 07:53 Dose: 15 mg Documented By: SANNA Chlorhexidine Gluconate (Chlorhexidine Gluc Oral Rinse 15 Ml Mouthwash) 15 ml BUCCAL BID [facility] Last Admin: 09/01/23 07:52 Dose: 15 ml Documented By: SANNA Clonazepam (Clonazepam 0.5 Mg Tablet) 0.5 mg PO BID [facility] Last Admin: 09/01/23 08:59 Dose: 0.5 mg Documented By: SANNA Dextrose (Dextrose 50 % 25 Gm/50 Ml Syringe) 25 gm IVPUSH Q15M PRN; Protocol PRN Reason: per Hypoglycemia Standing Ord. Enoxaparin Sodium (Enoxaparin Sodium 40 Mg/0.4 Ml Syringe) 40 mg SUBCUT Q24H [facility] Last Admin: 08/31/23 18:36 Dose: 40 mg Documented By: AMY Famotidine (Famotidine 20 Mg Tablet) 20 mg PO DAILY [facility] Last Admin: 09/01/23 07:55 Dose: 20 mg Documented By: SANNA Gabapentin (Gabapentin 400 Mg Capsule) 800 mg PO TID [facility] Last Admin: 09/01/23 07:54 Dose: 800 mg Documented By: SANNA Glucose (Glucose Gel 15 Gm Gel..Gram.) 15 gm PO Q15M PRN; Protocol PRN Reason: per Hypoglycemia Standing Ord. Heparin Sodium (Porcine) (Heparin Sodium,Porcine Flush 50 Units/5 Ml Syringe) 50 units IVFLUSH QSHIFT [facility] Last Admin: 09/01/23 07:52 Dose: 50 units Documented By: SANNA Hydromorphone HCl (Hydromorphone Hcl 4 Mg Tablet) 8 mg PO TID [facility] Last Admin: 09/01/23 09:00 Dose: 8 mg Documented By: SANNA Hydroxyzine HCl (Hydroxyzine Hcl 50 Mg Tablet) 100 mg PO BEDTIME [facility] Last Admin: 08/31/23 20:18 Dose: 100 mg Documented By: LARY Piperacillin Sod/Tazobactam (Sod 3.375 gm/ Sodium Chloride) 50 mls @ 100 mls/hr IV Q6H [facility] Last Infusion: 09/01/23 09:10 Dose: Infused Documented By: SANNA Vancomycin HCl 1,000 mg/ (Sodium Chloride) 270 mls @ 270 mls/hr IV Q12H [facility] Last Infusion: 09/01/23 06:02 Dose: Infused Documented By: LARY Insulin Glargine (Insulin Glargine,Hum.Rec.Anlog 100 Unit/Ml 10 Ml Vial) 10 unit SUBCUT BEDTIME [facility] Last Admin: 08/31/23 20:19 Dose: 10 unit Documented By: LARY Insulin Human Lispro (Insulin Lispro 100 Unit/Ml 3 Ml Vial) 0 unit SUBCUT QIDACHS [facility]; Protocol Last Admin: 09/01/23 12:31 Dose: Not Given Documented By: SANNA Non-Admin Reason: Pt too lethargic to eat. hold 2units Lisinopril (Lisinopril 2.5 Mg Tablet) 2.5 mg PO DAILY [facility]; Protocol Last Admin: 09/01/23 07:55 Dose: 2.5 mg Documented By: SANNA Loperamide HCl (Loperamide Hcl 2 Mg Capsule) 2 mg PO Q6H PRN PRN Reason: Loose Stool Melatonin (Melatonin 3 Mg Tablet) 9 mg PO BEDTIME PRN PRN Reason: Insomnia Last Admin: 08/29/23 22:18 Dose: 9 mg Documented By: KWAME Methadone HCl (Methadone Hcl 20 Mg/2 Ml Oral.Conc) 150 mg PO DAILY [facility] Last Admin: 09/01/23 07:50 Dose: 150 mg Documented By: SANNA Multivitamins/Vitamin C (Multivitamin Tablet) 1 tab PO DAILY [facility] Last Admin: 09/01/23 07:55 Dose: 1 tab Documented By: SANNA Nicotine (Nicotine 14 Mg Patch.Td24) 14 mg TRANSDERMA DAILY [facility] Last Admin: 09/01/23 07:52 Dose: 14 mg Documented By: SANNA Ondansetron HCl (Ondansetron Hcl 4 Mg/2 Ml Vial) 4 mg IVPUSH Q8H PRN PRN Reason: Nausea and Vomiting Oxybutynin Chloride (Oxybutynin Chloride 5 Mg Tablet) 5 mg PO BEDTIME [facility] Last Admin: 08/31/23 20:17 Dose: 5 mg Documented By: LARY Pharmacy Consult (Consult Rx Vancomycin Dosing) 1 each MISCELLANE DAILY PRN PRN Reason: Consult order Polyethylene Glycol (Polyethylene Glycol 3350 17 Gm Powd.Pack) 17 gm PO DAILY [facility] Last Admin: 09/01/23 07:32 Dose: Not Given Documented By: SANNA Non-Admin Reason: Patient Refused Senna (Sennosides 8.6 Mg Tablet) 8.6 mg PO BID [facility] Last Admin: 09/01/23 07:54 Dose: 8.6 mg Documented By: SANNA Sodium Chloride (0.9 % Sodium Chloride Flush 3 Ml Syringe) 3 ml IVFLUSH QSHIFT [facility] Last Admin: 09/01/23 09:06 Dose: Not Given Documented By: SANNA Non-Admin Reason: Previously Administered Thiamine HCl (Thiamine Hcl 100 Mg Tablet) 100 mg PO DAILY [facility] Last Admin: 09/01/23 07:54 Dose: 100 mg Documented By: SANNA Tizanidine HCl (Tizanidine Hcl 4 Mg Tablet) 2 mg PO TID [facility] Last Admin: 09/01/23 07:54 Dose: 2 mg Documented By: SANNA Topiramate (Topiramate 25 Mg Tablet) 25 mg PO DAILY [facility] Last Admin: 09/01/23 07:55 Dose: 25 mg Documented By: SANNA Trazodone HCl (Trazodone Hcl 25 Mg Halftab) 25 mg PO BEDTIME [facility] Labs 08/29/23 05:54 09/01/23 06:03 Labs: Laboratory Results - last 24 hr 08/31/23 08/31/23 08/31/23 15:48 16:28 19:52 Hold Purple Top Estim Creat Clear Calc Estimated GFR POC Glucose 144 H 170 H Random Vancomycin 12.6 L 09/01/23 09/01/23 09/01/23 06:03 06:09 07:03 Hold Purple Top SEE NOTE Estim Creat Clear Calc 70.3 Estimated GFR > 60 POC Glucose 152 H Random Vancomycin 09/01/23 11:12 Hold Purple Top Estim Creat Clear Calc Estimated GFR POC Glucose 152 H Random Vancomycin Microbiology Microbiology Results: Microbiology 08/28/23 10:20 Gram Stain - Final Heel, Right Routine Culture - Final Staphylococcus aureus Morganella morganii ssp ariel Corynebacterium species Anaerobic Culture - Preliminary Culture in progress. Assessment and Plan (1) Diabetes mellitus type 2 in obese: Status: Acute (2) Diabetic ulcer of heel: Status: Acute Plan 58yo F long-term resident of [facility] with DM2 s/p L BKA, HTN, chronic pain on methadone + hydromorphone, urinary retention with chronic [place] anxiety/depression, tobacco abuse, and chronic RLE wounds presenting with cellulitis of RLE and concern of R heel ulcer infection #infected diabetic ulcer of R heel with cellulitis, not septic on iv vanc + pip-susy 08/28-. BCx neg x 48h ,wound culture grew Staph, Corynebacterium and Morganella morganii cannot do MRI, will get CT with contrast to r/o underlying osteomyelitis s/p midline Arterial duplex limited study, indicate more proximal iliac arterial disease versus below-knee arterial occlusive disease. Unknown allergy to iodine will premedicate prior to CT right foot Consult vascular surgery. 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 Right lower leg venous dermatitis wound wound bed dry red with adherent yellow slough Seen by wound nurse will follow-up there instructions. 1. Turn and Reposition every 2 hours and as needed for patient comfort consider use of wedges available in the storeroom. 2. Off Load all bony prominences with use of pillows, wedges and heel boots. 3. Monitor for incontinence and moisture control. 4. Provide adequate and supplemental nutrition. 5. Order or Continue low air loss mattress. 6. Maintain blood glucose levels per Providers orders. HTN -suboptimal blood pressure control will increase dose of lisinopril to 5 mg and follow BP HLD - statin DM2 - blood sugars stable continue basal-bolus insulin tobacco abuse - NRT, counseling done chronic pain -on multiple narcotic and sedative medications including methadone, hydromorphone, gabapentin, baclofen, tizanidine , noted to have significant somnolence and Periods of apnea treated with Narcan will decrease dose of trazodone, Dilaudid, pharmacy will review home medications. urinary retention - oxybutynin, continue chronic [place] mood disorder - clonazepam, hydroxyzine, topiramate, and trazodone, GERD - famotidine VTE prophylaxis - LMWH dispo - eventual return to LTC @ [facility] In my clinical judgment, the patient requires continued inpatient hospitalization for the following reasons: IV ABX, r/o osteomyelitis Time Spent With Patient Time: Total time managing care of this patient today ____ minutes. Quality Stroke Does the patient have a stroke diagnosis?: No VTE Prior VTE?: No VTE Risk Level:: Medical - moderate - high VTE Device Contraindication: Procedure Contraindicated VTE Drug Contraindication: N/A - Med Ordered
[2023-09-01] MEDS: HYDROmorphone HCl 2 MG TABLET 6 MG PO ×2 (15:17→21:50)
[2023-09-01 15:43] LABS: Vancomycin Random 14.4 mcg/mL (15-20)
[2023-09-01 16:00] VITALS: BP 179/87; PULSE 74; RESP 18; TEMP 36.4; O2SAT 94
[2023-09-01 16:15] LABS: Glucose, Whole Blood 181 mg/dL (60-115)
[2023-09-01] MEDS: iohexoL 350 MG/ML 100 ML INFUS..BTL IV (16:25)
[2023-09-01] MEDS: Enoxaparin Sodium 40 MG/0.4 ML SYRINGE SUBCUT (16:45)
--- NOTE | 2023-09-01 18:24 | PC.NURSE ---
This morning patient was awake alert> Given morning meds. Including methadone, po dilaudid 8mg, and clonipin. later in the day patient noted to be somnolent arousable with painful stimuli with slow respiratory rate. MD Cerrato at bed w this nurse. Nasal narcan given to good effect @ 12:20
[2023-09-01 20:00] VITALS: BP 158/75; PULSE 64; RESP 18; TEMP 36.1
[2023-09-01 20:23] LABS: Glucose, Whole Blood 142 mg/dL (60-115)
[2023-09-01] MEDS: oxyBUTYnin chloride 5 MG TABLET PO (20:32)
[2023-09-01] MEDS: hydrOXYzine HCL 50 MG TABLET 100 MG PO (20:32)
[2023-09-01] MEDS: Gabapentin 300 MG CAPSULE 600 MG PO (20:33)
[2023-09-01] MEDS: traZODone HCL 25 MG HALFTAB PO (20:33)
[2023-09-01] MEDS: Atorvastatin Calcium 10 MG TABLET PO (20:34)
[2023-09-01] MEDS: Insulin Glargine,Hum.rec.anlog 100 UNIT/ML 10 ML VIAL 10 UNIT SUBCUT (21:52)
--- NOTE | 2023-09-01 21:55 | PC.NURSE ---
Addendum entered by Fabiana Fowler 09/02/23 05:19: Pt refused [address] Fernando is aware. Addendum entered by Fabiana Fowler 09/02/23 03:39: Pt refused Zosyn 3.375g for 0300. Dr. Fernando is aware of refusal. Original Note: Pt refused Zosyn 3.375g for 2100. Dr. Fernando spoke to pt and is aware of refusal.
[2023-09-02] MEDS: Heparin Sodium,Porcine Flush 50 UNITS/5 ML SYRINGE IVFLUSH ×4 (00:19→23:17)
[2023-09-02 05:51] LABS: Creatinine Clr Calc Pharmacy 74.1; Estimated Glomerular Filt Rate > 60
[2023-09-02] MEDS: methADONE HCl 20 MG/2 ML ORAL.CONC 150 MG PO (07:36)
[2023-09-02 07:38] VITALS: BP 138/74; PULSE 66; RESP 16; TEMP 36.7; O2SAT 92
[2023-09-02 07:51] LABS: Glucose, Whole Blood 164 mg/dL (60-115)
[2023-09-02] MEDS: Piperacillin Sodium/Tazobactam 3.375 GM in 0.9 % Sodium Chloride 50 ML IV ×3 (08:07→20:50)
[2023-09-02] MEDS: Insulin Lispro 100 UNIT/ML 3 ML VIAL SUBCUT ×4 (08:12→20:51)
[2023-09-02] MEDS: Nicotine 14 MG PATCH.TD24 TRANSDERMA (08:14)
[2023-09-02] MEDS: Chlorhexidine Gluc Oral Rinse 15 ML MOUTHWASH BUCCAL ×2 (08:14→20:52)
[2023-09-02] MEDS: Thiamine HCL 100 MG TABLET PO (08:15)
[2023-09-02] MEDS: Gabapentin 300 MG CAPSULE 600 MG PO ×3 (08:15→20:52)
[2023-09-02] MEDS: Aspirin Enteric Coated 81 MG TABLET.DR PO (08:15)
[2023-09-02] MEDS: lisinopriL 2.5 MG TABLET PO (08:15)
[2023-09-02] MEDS: Topiramate 25 MG TABLET PO (08:15)
[2023-09-02] MEDS: Famotidine 20 MG TABLET PO (08:15)
[2023-09-02] MEDS: vancomycin HCL 1,000 MG in 0.9 % Sodium Chloride 250 ML 270 MG IV (10:37)
[2023-09-02] MEDS: Baclofen 10 MG TABLET 15 MG PO ×3 (10:38→20:52)
[2023-09-02] MEDS: HYDROmorphone HCl 2 MG TABLET 6 MG PO ×3 (10:38→20:53)
[2023-09-02] MEDS: clonazePAM 0.5 MG TABLET PO ×2 (10:38→20:53)
[2023-09-02 11:25] LABS: Glucose, Whole Blood 162 mg/dL (60-115)
--- NOTE | 2023-09-02 12:34 | P.CONGS_ITS ---
History of Present Illness Consult details Consult date: 09/02/23 Reason for consult: wound care Narrative: Very complex 58-year-old female presents for evaluation regarding nonhealing lower extremity ulcers. She does have a prior history of diabetes and morbid obesity. She has these nonhealing right lower extremity ulcers that have been going on for an extended period of time. She reports that it is getting worse while she is in bed and usually does better when she is in a sitting position. She is quite concerned about these lower extremity ulcers Review of Systems 2 Review of Systems: Yes all other systems are reviewed and are negative Constitutional: Constitutional: Reports no additional constitutional complaints ENT: Reports Normal hearing present Cardiovascular: Cardiovascular: Denies chest pain, Denies chest pain at rest, Denies chest pain with activity and Denies pedal edema Respiratory: Respiratory: Denies cough Gastrointestinal: Gastrointestinal: Denies abdominal pain Musculoskeletal: Musculoskeletal: Denies abnormal gait, Denies muscle cramps and Denies radiating pain into limb Integumentary/Breasts: Skin/Breast: Denies skin ulcer and Denies wounds Neurologic: Reports Normal hearing present and Denies abnormal gait Psychiatric: Psychiatric: Reports no additional psychiatric complaints PMFSH Past Medical History Medical History Chronic pain syndrome Tobacco abuse History of left below knee amputation Urinary retention Hypertension Diabetes mellitus type 2 in obese Social History Social History Household Members: None Housing: Shelter Do you presently have visiting nurse or other home services: No Patient Tobacco Use Status: Current everyday Tobacco user Cigarette Packs Per Day: 0.5 Cigarettes Per Day: 10.0 e-Cigarette/Vaping Use: Currently Using Second Hand Smoke Exposure: No service: No Meds Allergies Allergy/AdvReac Type Severity Reaction Status Date / Time ceftriaxone Allergy Palpitation Verified 08/28/23 10:57 s cheese Allergy Vomiting Verified 08/28/23 18:00 haloperidol [From Haldol] Allergy Angioedema Verified 08/28/23 10:57 iodine Allergy Unknown Verified 08/28/23 10:57 metformin Allergy Vomiting Verified 08/28/23 10:57 pollen extracts Allergy Sneezing Verified 08/28/23 10:57 Active Medications: Current Medications Acetaminophen (Acetaminophen 325 Mg Tablet) 650 mg PO Q6H PRN PRN Reason: Pain, Mild (Pain Scale 1-3) Aspirin (Aspirin Enteric Coated 81 Mg Tablet.Dr) 81 mg PO DAILY [facility] Last Admin: 09/02/23 08:15 Dose: 81 mg Atorvastatin Calcium (Atorvastatin Calcium 10 Mg Tablet) 10 mg PO BEDTIME [facility] Last Admin: 09/01/23 20:34 Dose: 10 mg Baclofen (Baclofen 10 Mg Tablet) 15 mg PO TID [facility] Last Admin: 09/02/23 10:38 Dose: 15 mg Chlorhexidine Gluconate (Chlorhexidine Gluc Oral Rinse 15 Ml Mouthwash) 15 ml BUCCAL BID [facility] Last Admin: 09/02/23 08:14 Dose: 15 ml Clonazepam (Clonazepam 0.5 Mg Tablet) 0.5 mg PO BID [facility] Last Admin: 09/02/23 10:38 Dose: 0.5 mg Dextrose (Dextrose 50 % 25 Gm/50 Ml Syringe) 25 gm IVPUSH Q15M PRN; Protocol PRN Reason: per Hypoglycemia Standing Ord. Enoxaparin Sodium (Enoxaparin Sodium 40 Mg/0.4 Ml Syringe) 40 mg SUBCUT Q24H [facility] Last Admin: 09/01/23 16:45 Dose: 40 mg Famotidine (Famotidine 20 Mg Tablet) 20 mg PO DAILY [facility] Last Admin: 09/02/23 08:15 Dose: 20 mg Gabapentin (Gabapentin 300 Mg Capsule) 600 mg PO TID [facility] Last Admin: 09/02/23 08:15 Dose: 600 mg Glucose (Glucose Gel 15 Gm Gel..Gram.) 15 gm PO Q15M PRN; Protocol PRN Reason: per Hypoglycemia Standing Ord. Heparin Sodium (Porcine) (Heparin Sodium,Porcine Flush 50 Units/5 Ml Syringe) 50 units IVFLUSH QSHIFT [facility] Last Admin: 09/02/23 08:14 Dose: 50 units Hydromorphone HCl (Hydromorphone Hcl 2 Mg Tablet) 6 mg PO TID [facility] Last Admin: 09/02/23 10:38 Dose: 6 mg Hydroxyzine HCl (Hydroxyzine Hcl 50 Mg Tablet) 100 mg PO BEDTIME [facility] Last Admin: 09/01/23 20:32 Dose: 100 mg Piperacillin Sod/Tazobactam (Sod 3.375 gm/ Sodium Chloride) 50 mls @ 100 mls/hr IV Q6H [facility] Last Infusion: 09/02/23 08:49 Dose: Infused Vancomycin HCl 1,000 mg/ (Sodium Chloride) 270 mls @ 270 mls/hr IV Q12H [facility] Last Admin: 09/02/23 10:37 Dose: 270 mls/hr Insulin Glargine (Insulin Glargine,Hum.Rec.Anlog 100 Unit/Ml 10 Ml Vial) 10 unit SUBCUT BEDTIME [facility] Last Admin: 09/01/23 21:52 Dose: 10 unit Insulin Human Lispro (Insulin Lispro 100 Unit/Ml 3 Ml Vial) 0 unit SUBCUT QIDACHS [facility]; Protocol Last Admin: 09/02/23 12:12 Dose: 2 unit Lisinopril (Lisinopril 2.5 Mg Tablet) 2.5 mg PO DAILY [facility]; Protocol Last Admin: 09/02/23 08:15 Dose: 2.5 mg Loperamide HCl (Loperamide Hcl 2 Mg Capsule) 2 mg PO Q6H PRN PRN Reason: Loose Stool Melatonin (Melatonin 3 Mg Tablet) 9 mg PO BEDTIME PRN PRN Reason: Insomnia Last Admin: 08/29/23 22:18 Dose: 9 mg Methadone HCl (Methadone Hcl 20 Mg/2 Ml Oral.Conc) 150 mg PO DAILY [facility] Last Admin: 09/02/23 07:36 Dose: 150 mg Multivitamins/Vitamin C (Multivitamin Tablet) 1 tab PO DAILY [facility] Last Admin: 09/02/23 10:43 Dose: Not Given Nicotine (Nicotine 14 Mg Patch.Td24) 14 mg TRANSDERMA DAILY [facility] Last Admin: 09/02/23 08:14 Dose: 14 mg Ondansetron HCl (Ondansetron Hcl 4 Mg/2 Ml Vial) 4 mg IVPUSH Q8H PRN PRN Reason: Nausea and Vomiting Oxybutynin Chloride (Oxybutynin Chloride 5 Mg Tablet) 5 mg PO BEDTIME [facility] Last Admin: 09/01/23 20:32 Dose: 5 mg Pharmacy Consult (Consult Rx Vancomycin Dosing) 1 each MISCELLANE DAILY PRN PRN Reason: Consult order Polyethylene Glycol (Polyethylene Glycol 3350 17 Gm Powd.Pack) 17 gm PO DAILY [facility] Last Admin: 09/02/23 10:44 Dose: Not Given Senna (Sennosides 8.6 Mg Tablet) 8.6 mg PO BID [facility] Last Admin: 09/02/23 10:44 Dose: Not Given Sodium Chloride (0.9 % Sodium Chloride Flush 3 Ml Syringe) 3 ml IVFLUSH QSHIFT [facility] Last Admin: 09/02/23 08:49 Dose: Not Given Thiamine HCl (Thiamine Hcl 100 Mg Tablet) 100 mg PO DAILY [facility] Last Admin: 09/02/23 08:15 Dose: 100 mg Topiramate (Topiramate 25 Mg Tablet) 25 mg PO DAILY [facility] Last Admin: 09/02/23 08:15 Dose: 25 mg Trazodone HCl (Trazodone Hcl 25 Mg Halftab) 25 mg PO BEDTIME [facility] Last Admin: 09/01/23 20:33 Dose: 25 mg Home Medications Medication Instructions Recorded Confirmed Last Taken Type Saccharomyces boulardii 1 cap PO BID 08/28/23 08/28/23 Unknown History acetaminophen 500 mg tablet 1,000 mg PO TID 08/28/23 08/28/23 Unknown History ammonium lactate 5 % lotion 1 appl topical DAILY 08/28/23 08/28/23 Unknown History (Lac-Hydrin Five) aspirin 81 mg capsule 81 mg PO DAILY 08/28/23 08/28/23 Unknown History atorvastatin 10 mg tablet 10 mg PO BEDTIME 08/28/23 08/28/23 Unknown History baclofen 5 mg tablet 15 mg PO TID 08/28/23 08/28/23 Unknown History chlorhexidine gluconate 0.12 % 15 ml buccal BID 08/28/23 08/28/23 Unknown History mouthwash clonazepam 0.5 mg tablet (Klonopin) 0.5 mg PO BID 08/28/23 08/28/23 Unknown History clotrimazole 1 % topical cream 1 appl topical BID 08/28/23 08/28/23 Unknown History empagliflozin 25 mg tablet 25 mg PO DAILY 08/28/23 08/28/23 Unknown History famotidine 20 mg tablet 20 mg PO DAILY 08/28/23 08/28/23 Unknown History gabapentin 800 mg tablet 800 mg PO TID 08/28/23 08/28/23 Unknown History glipizide 10 mg tablet, extended 20 mg PO DAILY 08/28/23 08/28/23 Unknown History release 24 hr hydromorphone 8 mg tablet 8 mg PO Q12H PRN Pain 08/28/23 08/28/23 Unknown History hydromorphone 8 mg tablet 8 mg PO TID 08/28/23 08/28/23 Unknown History (Dilaudid) hydroxyzine HCl 50 mg tablet 100 mg PO BEDTIME 08/28/23 08/28/23 Unknown History insulin glargine 100 unit/mL 10 unit subcut QPM 08/28/23 08/28/23 Unknown History subcutaneous solution (Lantus U-100 Insulin) insulin lispro 100 unit/mL 1 sliding scale dose subcut 08/28/23 08/28/23 Unknown History subcutaneous solution (Admelog USEASDIRECTD U-100 Insulin lispro) lidocaine 3 % topical cream 1 appl topical DAILY PRN Pain 08/28/23 08/28/23 Unknown History lidocaine 3 % topical cream 1 appl topical Q48H 08/28/23 08/28/23 Unknown History lisinopril 2.5 mg tablet 2.5 mg PO DAILY 08/28/23 08/28/23 Unknown History loperamide 2 mg tablet 2 mg PO Q6H PRN Loose Stool 08/28/23 08/28/23 Unknown History melatonin 5 mg tablet 10 mg PO BEDTIME PRN Insomnia 08/28/23 08/28/23 Unknown History methadone 10 mg/mL oral 150 mg PO DAILY 08/28/23 08/28/23 08/28/23 08:00 History concentrate (Methadose) multivitamin 1 tab PO DAILY 08/28/23 08/28/23 Unknown History oxybutynin chloride 5 mg tablet 5 mg PO BEDTIME 08/28/23 08/28/23 Unknown History polyethylene glycol 3350 17 gram 17 g PO DAILY 08/28/23 08/28/23 Unknown History oral powder packet (Miralax) sennosides 8.6 mg tablet (senna) 8.6 mg PO BID 08/28/23 08/28/23 Unknown History thiamine HCl (vitamin B1) 100 mg 100 mg PO DAILY 08/28/23 08/28/23 Unknown History tablet tizanidine 2 mg tablet 2 mg PO TID 08/28/23 08/28/23 Unknown History topiramate 25 mg tablet 25 mg PO DAILY 08/28/23 08/28/23 Unknown History trazodone 50 mg tablet 50 mg PO BEDTIME 08/28/23 08/28/23 Unknown History Physical Exam 2 Vital Signs: Vital Signs: Last Vital Signs Temp 98.1 F 09/02/23 07:38 Pulse 66 09/02/23 07:38 Resp 16 09/02/23 07:38 BP 138/74 09/02/23 07:38 Pulse Ox 92 09/02/23 07:38 O2 Del Method Room Air 09/02/23 07:38 BMI result Body Mass Index 37.0 Const: General: cooperative, healthy appearing and comfortable O rientation/consciousness: oriented to person, oriented to place and oriented to time HEENT: Head: Yes normal to inspection Neck: Neck: Yes normal visual inspection Carotids: no bruits Chest: Chest palpation & inspection: normal inspection of the chest Resp: Effort & Inspection: normal respiratory effort and able to speak in complete sentences Auscultation: clear to auscultation bilaterally, no crackles, no rales, no rhonchi and no wheezes Cardio: Rate: regular rate Rhythm: regular rhythm Heart sounds: S1 normal heart sound present and S2 normal heart sound present Bruits: no carotid bruits Peripheral pulses: Peripheral pulses 2+ throughout GI: Inspection: Yes normal to inspection Skin: Other: Right lower extremity medial and lateral leg wounds Wounds: no wounds Hair: normal Neuro: General: oriented to person, oriented to place and oriented to time Cranial nerves: Yes CN's II-XII intact bilaterally and Yes Normal hearing present Cognition (Neuro): normal cognition Motor exam (neuro): 5/5 motor strength present throughout Extrem: Other: venous exam: No significant superficial varicosities or spider telangiectasias, minimal edema General: No clubbing, No cyanosis and No edema Psych: Appearance: grossly normal Mental Status: mental status grossly normal Speech and movement: Normal speech and movement present Results Labs 08/29/23 05:54 09/02/23 05:08 Labs: Abnormal lab results 09/01/23 09/01/23 09/01/23 Range/Units 15:04 16:12 20:18 POC Glucose 181 H 142 H (60-115) mg/dL Random Vancomycin 14.4 L (15-20) mcg/mL 09/02/23 09/02/23 Range/Units 07:45 11:15 POC Glucose 164 H 162 H (60-115) mg/dL Random Vancomycin (15-20) mcg/mL BMP 09/02/23 05:08 Creatinine 0.74 All other labs normal. Assessment and Plan (1) PAD (peripheral artery disease): Status: Acute Plan In short patient has nonhealing lower extremity ulcers. There is an element of peripheral vascular disease. I did review written report and images of the ultrasound which is concerning for inflow and SFA disease. She will require some sort of revascularization in the hopes to heal this wound. My 1st attempt would be at an endovascular intervention. I discussed this in extensive detail with the patient. She essentially refused. She was demanding general anesthesia most of these cases are done under local and sedation. She would like to try to heal these on her own in a sitting position which she feels will be best for her. At the current time would recommend local wound care and antibiotic therapy as required. [facility] Should she require or request vascular surgery and revascularization in the future happy to see her as an outpatient. We will follow her on an as-needed basis. Thank you for allowing us to assist in her care. Procedures Date of Service Date of Service: 09/02/23
--- NOTE | 2023-09-02 14:25 | HO.PM.IMPN ---
Subjective Subjective Date of Service: 09/02/23 Interval History: Requesting for regular diet, slept well complaining of right heel pain, not aware of her home medications, appears more awake alert this morning, tolerating diet no nausea no vomiting no abdominal pain or diarrhea, no acute issues overnight. Review of Systems All other system reviewed and negative. Physical Exam Vital Signs: Vital Signs: Last Vital Signs Temp 98.1 F 09/02/23 07:38 Pulse 66 09/02/23 07:38 Resp 16 09/02/23 07:38 BP 138/74 09/02/23 07:38 Pulse Ox 92 09/02/23 07:38 O2 Del Method Room Air 09/02/23 07:38 BMI result Body Mass Index 37.0 Const: Other: Gen: Awake alert x3, in no acute distress HEENT: sclera anicteric, moist mucus membranes Neck: supple, no JVD Lungs: clear to auscultation bilaterally Heart: regular rate and rhythm, no murmurs Abd: soft, non-tender, non-distended Ext: s/p L BKA. RLE persistent erythema and induration improved significantly,from proximal calf/schwab inferiorly with lateral ulcers no drainage large ulcer over R heel see wound nurse report for detail Skin: warm/well-perfused Neuro: alert and oriented x3, no focal findings. Psych: appropriate affect Objective Data Active Medications Acetaminophen (Acetaminophen 325 Mg Tablet) 650 mg PO Q6H PRN PRN Reason: Pain, Mild (Pain Scale 1-3) Aspirin (Aspirin Enteric Coated 81 Mg Tablet.) 81 mg PO DAILY [facility] Last Admin: 09/02/23 08:15 Dose: 81 mg Documented By: SANNA Atorvastatin Calcium (Atorvastatin Calcium 10 Mg Tablet) 10 mg PO BEDTIME [facility] Last Admin: 09/01/23 20:34 Dose: 10 mg Documented By: LARY Baclofen (Baclofen 10 Mg Tablet) 15 mg PO TID [facility] Last Admin: 09/02/23 10:38 Dose: 15 mg Documented By: SANNA Comments: Chlorhexidine Gluconate (Chlorhexidine Gluc Oral Rinse 15 Ml Mouthwash) 15 ml BUCCAL BID [facility] Last Admin: 09/02/23 08:14 Dose: 15 ml Documented By: SANNA Clonazepam (Clonazepam 0.5 Mg Tablet) 0.5 mg PO BID [facility] Last Admin: 09/02/23 10:38 Dose: 0.5 mg Documented By: SANNA Dextrose (Dextrose 50 % 25 Gm/50 Ml Syringe) 25 gm IVPUSH Q15M PRN; Protocol PRN Reason: per Hypoglycemia Standing Ord. Enoxaparin Sodium (Enoxaparin Sodium 40 Mg/0.4 Ml Syringe) 40 mg SUBCUT Q24H [facility] Last Admin: 09/01/23 16:45 Dose: 40 mg Documented By: SANNA Famotidine (Famotidine 20 Mg Tablet) 20 mg PO DAILY [facility] Last Admin: 09/02/23 08:15 Dose: 20 mg Documented By: SANNA Gabapentin (Gabapentin 300 Mg Capsule) 600 mg PO TID [facility] Last Admin: 09/02/23 08:15 Dose: 600 mg Documented By: SANNA Glucose (Glucose Gel 15 Gm Gel..Gram.) 15 gm PO Q15M PRN; Protocol PRN Reason: per Hypoglycemia Standing Ord. Heparin Sodium (Porcine) (Heparin Sodium,Porcine Flush 50 Units/5 Ml Syringe) 50 units IVFLUSH QSHIFT [facility] Last Admin: 09/02/23 08:14 Dose: 50 units Documented By: SANNA Hydromorphone HCl (Hydromorphone Hcl 2 Mg Tablet) 6 mg PO TID [facility] Last Admin: 09/02/23 10:38 Dose: 6 mg Documented By: SANNA Hydroxyzine HCl (Hydroxyzine Hcl 50 Mg Tablet) 100 mg PO BEDTIME [facility] Last Admin: 09/01/23 20:32 Dose: 100 mg Documented By: LARY Piperacillin Sod/Tazobactam (Sod 3.375 gm/ Sodium Chloride) 50 mls @ 100 mls/hr IV Q6H [facility] Last Infusion: 09/02/23 08:49 Dose: Infused Documented By: SANNA Vancomycin HCl 1,000 mg/ (Sodium Chloride) 270 mls @ 270 mls/hr IV Q12H [facility] Last Infusion: 09/02/23 13:03 Dose: Infused Documented By: SANNA Insulin Glargine (Insulin Glargine,Hum.Rec.Anlog 100 Unit/Ml 10 Ml Vial) 10 unit SUBCUT BEDTIME [facility] Last Admin: 09/01/23 21:52 Dose: 10 unit Documented By: LARY Insulin Human Lispro (Insulin Lispro 100 Unit/Ml 3 Ml Vial) 0 unit SUBCUT QIDACHS [facility]; Protocol Last Admin: 09/02/23 12:12 Dose: 2 unit Documented By: SANNA Lisinopril (Lisinopril 2.5 Mg Tablet) 2.5 mg PO DAILY [facility]; Protocol Last Admin: 09/02/23 08:15 Dose: 2.5 mg Documented By: SANNA Loperamide HCl (Loperamide Hcl 2 Mg Capsule) 2 mg PO Q6H PRN PRN Reason: Loose Stool Melatonin (Melatonin 3 Mg Tablet) 9 mg PO BEDTIME PRN PRN Reason: Insomnia Last Admin: 08/29/23 22:18 Dose: 9 mg Documented By: KWAME Methadone HCl (Methadone Hcl 20 Mg/2 Ml Oral.Conc) 150 mg PO DAILY [facility] Last Admin: 09/02/23 07:36 Dose: 150 mg Documented By: SANNA Multivitamins/Vitamin C (Multivitamin Tablet) 1 tab PO DAILY [facility] Last Admin: 09/02/23 10:43 Dose: Not Given Documented By: SANNA Non-Admin Reason: Patient Refused Nicotine (Nicotine 14 Mg Patch.Td24) 14 mg TRANSDERMA DAILY [facility] Last Admin: 09/02/23 08:14 Dose: 14 mg Documented By: SANNA Ondansetron HCl (Ondansetron Hcl 4 Mg/2 Ml Vial) 4 mg IVPUSH Q8H PRN PRN Reason: Nausea and Vomiting Oxybutynin Chloride (Oxybutynin Chloride 5 Mg Tablet) 5 mg PO BEDTIME [facility] Last Admin: 09/01/23 20:32 Dose: 5 mg Documented By: LARY Pharmacy Consult (Consult Rx Vancomycin Dosing) 1 each MISCELLANE DAILY PRN PRN Reason: Consult order Polyethylene Glycol (Polyethylene Glycol 3350 17 Gm Powd.Pack) 17 gm PO DAILY [facility] Last Admin: 09/02/23 10:44 Dose: Not Given Documented By: SANNA Non-Admin Reason: Patient Refused Senna (Sennosides 8.6 Mg Tablet) 8.6 mg PO BID [facility] Last Admin: 09/02/23 10:44 Dose: Not Given Documented By: SANNA Non-Admin Reason: Patient Refused Sodium Chloride (0.9 % Sodium Chloride Flush 3 Ml Syringe) 3 ml IVFLUSH QSHIFT [facility] Last Admin: 09/02/23 08:49 Dose: Not Given Documented By: SANNA Non-Admin Reason: IV Running Thiamine HCl (Thiamine Hcl 100 Mg Tablet) 100 mg PO DAILY [facility] Last Admin: 09/02/23 08:15 Dose: 100 mg Documented By: SANNA Topiramate (Topiramate 25 Mg Tablet) 25 mg PO DAILY [facility] Last Admin: 09/02/23 08:15 Dose: 25 mg Documented By: SANNA Trazodone HCl (Trazodone Hcl 25 Mg Halftab) 25 mg PO BEDTIME [facility] Last Admin: 09/01/23 20:33 Dose: 25 mg Documented By: LARY Labs 08/29/23 05:54 09/02/23 05:08 Labs: Laboratory Results - last 24 hr 09/01/23 09/01/23 09/01/23 15:04 16:12 20:18 Hold Purple Top Estim Creat Clear Calc Estimated GFR POC Glucose 181 H 142 H Random Vancomycin 14.4 L 09/02/23 09/02/23 09/02/23 05:08 07:45 11:15 Hold Purple Top SEE NOTE Estim Creat Clear Calc 74.1 Estimated GFR > 60 POC Glucose 164 H 162 H Random Vancomycin Microbiology Microbiology Results: Microbiology 08/28/23 10:20 Gram Stain - Final Heel, Right Routine Culture - Final Staphylococcus aureus Morganella morganii ssp ariel Corynebacterium species Anaerobic Culture - Preliminary Culture in progress. Assessment and Plan (1) Diabetes mellitus type 2 in obese: Status: Acute (2) Diabetic ulcer of heel: Status: Acute Plan 58yo F long-term resident of [facility] with DM2 s/p L BKA, HTN, chronic pain on methadone + hydromorphone, urinary retention with chronic [place] anxiety/depression, tobacco abuse, and chronic RLE wounds presenting with cellulitis of RLE and concern of R heel ulcer infection #infected diabetic ulcer of R heel with cellulitis, not septic on iv vanc + pip-susy 08/28-. BCx neg x 48h ,wound culture grew Staph, Corynebacterium and Morganella morganii cannot do MRI, CT with contrast showed acute cellulitis, no abscess formation, no periosteal or cortical erosion to suggest osteomyelitis however occult osteomyelitis not ruled out Arterial duplex limited study, indicate more proximal iliac arterial disease versus below-knee arterial occlusive disease. seen by vascular surgery he recommended an endovascular intervention, however patient declined the procedure she demanded for general anaesthesia and would like to try to heal these on her own in a sitting position which she feels will be best for he, Dr. Bey recommend continued local wound care antibiotic and wound care follow-up as outpatient he recommend follow-up with him on as needed basis. Mid line in place will consult ID for duration and choice of antibiotic. 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 Right lower leg venous dermatitis wound wound bed dry red with adherent yellow slough Seen by wound nurse will follow-up there instructions. 1. Turn and Reposition every 2 hours and as needed for patient comfort consider use of wedges available in the storeroom. 2. Off Load all bony prominences with use of pillows, wedges and heel boots. 3. Monitor for incontinence and moisture control. 4. Provide adequate and supplemental nutrition. 5. Order or Continue low air loss mattress. 6. Maintain blood glucose levels per Providers orders. HTN -suboptimal blood pressure control will increase dose of lisinopril to 5 mg and follow BP HLD - statin DM2 - blood sugars stable continue basal-bolus insulin tobacco abuse - NRT, counseling done chronic pain -on multiple narcotic and sedative medications including methadone, hydromorphone, gabapentin, baclofen, tizanidine , Had an episode of somnolence and apnea treated with Narcan on 09/01 Therefore dose of trazodone, Neurontin and Dilaudid reduced, Zanaflex discontinued , will verify medications with nursing facility. urinary retention - oxybutynin, continue chronic [place] mood disorder - clonazepam, hydroxyzine, topiramate, and trazodone. GERD - famotidine VTE prophylaxis - LMWH dispo - eventual return to LTC @ [facility] In my clinical judgment, the patient requires continued inpatient hospitalization for the following reasons: IV ABX, expert consultation. Quality Stroke Does the patient have a stroke diagnosis?: No VTE Prior VTE?: No VTE Risk Level:: Medical - moderate - high VTE Device Contraindication: Procedure Contraindicated VTE Drug Contraindication: N/A - Med Ordered
--- NOTE | 2023-09-02 15:53 | MHC.CM.PN ---
DP return to [facility] @ [facility] when medically cleared.
[2023-09-02 16:00] VITALS: BP 122/60; PULSE 77; RESP 16; TEMP 37.1; O2SAT 91
[2023-09-02 16:52] LABS: Glucose, Whole Blood 244 mg/dL (60-115)
[2023-09-02] MEDS: Enoxaparin Sodium 40 MG/0.4 ML SYRINGE SUBCUT (17:18)
[2023-09-02 19:42] VITALS: BP 151/72; PULSE 78; RESP 17; TEMP 36.4; O2SAT 93
[2023-09-02 20:20] LABS: Glucose, Whole Blood 173 mg/dL (60-115)
[2023-09-02 20:29] LABS: Vancomycin Random 13.4 mcg/mL (15-20)
[2023-09-02] MEDS: oxyBUTYnin chloride 5 MG TABLET PO (20:52)
[2023-09-02] MEDS: hydrOXYzine HCL 50 MG TABLET 100 MG PO (20:52)
[2023-09-02] MEDS: 0.9 % Sodium Chloride Flush 3 ML SYRINGE IVFLUSH (20:52)
[2023-09-02] MEDS: Atorvastatin Calcium 10 MG TABLET PO (20:53)
[2023-09-02] MEDS: Sennosides 8.6 MG TABLET PO (20:53)
[2023-09-02] MEDS: Insulin Glargine,Hum.rec.anlog 100 UNIT/ML 10 ML VIAL 10 UNIT SUBCUT (20:55)
--- NOTE | 2023-09-02 21:06 | PHA.PROG ---
Admission Date/Time: August 28, 2023 16:20 Indication: BONE/JOINT Weight in k.4 kg Adjusted body weight in Kg: Foss body weight in Kg: Obesity Dosing Indication % IBW: Serum Creatinine - Last 168 Hours 08/28/23 08/29/23 08/30/23 13:24 05:54 05:07 Creatinine 0.71 0.61 0.69 08/31/23 09/01/23 09/02/23 06:04 06:03 05:08 Creatinine 0.64 0.78 0.74 Estimated CrCl and GFR - Last 168 Hours 08/28/23 08/29/23 08/30/23 13:24 05:54 05:07 Estim Creat Clear Calc 77.9 89.9 79.5 Estimated GFR > 60 > 60 > 60 08/31/23 09/01/23 09/02/23 06:04 06:03 05:08 Estim Creat Clear Calc 85.7 70.3 74.1 Estimated GFR > 60 > 60 > 60 Vancomycin Loading Dose: Current Vancomycin Dosing Regimen: Vancomycin Monitoring using AUC goal of 400 - 600 range with trough as surrogate marker: Date and Time for next Vancomycin Level to be drawn: Pharmacist Comments on Vancomycin Plan: change dose to 1250mg q12h due to low trough (13.4). Vancomycin dosing will take advantage of [employer] as a clinical decision support tool that uses Bayesian modeling to calculate individual patient's pharmacokinetic parameters and forecast the patient's drug concentration time course with the target goal AUC 24 range of 400 - 600 mg/L/hr.
[2023-09-02] MEDS: vancomycin HCL 1,250 MG in 0.9 % Sodium Chloride 250 ML 166.67 MG IV (21:32)
--- NOTE | 2023-09-02 21:56 | PC.NURSE ---
pt told me to discontinue the trazodone 25mg, PLATINUM SMITH was with me witness that what pt told. Dr. Coffman notified discontinue it.
--- NOTE | 2023-09-02 23:50 | W.PM.IDCN ---
History of Present Illness Data of Consult Service Date: 09/02/23 Requesting physician: Frida Stephens Primary Care Provider: Riley Alex MD HPI Reason for consult: right heel ulcer She presents with right heel ulcer/eschar and cellulitis for several days. She declined Vascular intervention Review of Systems Review of Systems: Yes all other systems are reviewed and are negative PMFSH Past Medical History Medical History Chronic pain syndrome Tobacco abuse History of left below knee amputation Urinary retention Hypertension Diabetes mellitus type 2 in obese Family History Family history: reviewed and not pertinent Social History Social History Household Members: None Housing: [facility]way Do you presently have visiting nurse or other home services: No Patient Tobacco Use Status: Current everyday Tobacco user Cigarette Packs Per Day: 0.5 Cigarettes Per Day: 10.0 e-Cigarette/Vaping Use: Currently Using Second Hand Smoke Exposure: No service: No Meds Allergies Allergy/AdvReac Type Severity Reaction Status Date / Time cheese Allergy Mild Vomiting Verified 09/02/23 19:14 ceftriaxone Allergy Palpitation Verified 08/28/23 10:57 s haloperidol [From Haldol] Allergy Angioedema Verified 08/28/23 10:57 iodine Allergy Unknown Verified 08/28/23 10:57 metformin Allergy Vomiting Verified 08/28/23 10:57 pollen extracts Allergy Sneezing Verified 08/28/23 10:57 Active Medications: Current Medications Acetaminophen (Acetaminophen 325 Mg Tablet) 650 mg PO Q6H PRN PRN Reason: Pain, Mild (Pain Scale 1-3) Aspirin (Aspirin Enteric Coated 81 Mg Tablet.) 81 mg PO DAILY [facility] Last Admin: 09/02/23 08:15 Dose: 81 mg Atorvastatin Calcium (Atorvastatin Calcium 10 Mg Tablet) 10 mg PO BEDTIME [facility] Last Admin: 09/02/23 20:53 Dose: 10 mg Baclofen (Baclofen 10 Mg Tablet) 15 mg PO TID [facility] Last Admin: 09/02/23 20:52 Dose: 15 mg Chlorhexidine Gluconate (Chlorhexidine Gluc Oral Rinse 15 Ml Mouthwash) 15 ml BUCCAL BID [facility] Last Admin: 09/02/23 20:52 Dose: 15 ml Dextrose (Dextrose 50 % 25 Gm/50 Ml Syringe) 25 gm IVPUSH Q15M PRN; Protocol PRN Reason: per Hypoglycemia Standing Ord. Enoxaparin Sodium (Enoxaparin Sodium 40 Mg/0.4 Ml Syringe) 40 mg SUBCUT Q24H [facility] Last Admin: 09/02/23 17:18 Dose: 40 mg Famotidine (Famotidine 20 Mg Tablet) 20 mg PO DAILY [facility] Last Admin: 09/02/23 08:15 Dose: 20 mg Gabapentin (Gabapentin 300 Mg Capsule) 600 mg PO TID [facility] Last Admin: 09/02/23 20:52 Dose: 600 mg Glucose (Glucose Gel 15 Gm Gel..Gram.) 15 gm PO Q15M PRN; Protocol PRN Reason: per Hypoglycemia Standing Ord. Heparin Sodium (Porcine) (Heparin Sodium,Porcine Flush 50 Units/5 Ml Syringe) 50 units IVFLUSH QSHIFT [facility] Last Admin: 09/02/23 23:17 Dose: 50 units Hydromorphone HCl (Hydromorphone Hcl 2 Mg Tablet) 6 mg PO TID [facility] Last Admin: 09/02/23 20:53 Dose: 6 mg Hydroxyzine HCl (Hydroxyzine Hcl 50 Mg Tablet) 100 mg PO BEDTIME [facility] Last Admin: 09/02/23 20:52 Dose: 100 mg Piperacillin Sod/Tazobactam (Sod 3.375 gm/ Sodium Chloride) 50 mls @ 100 mls/hr IV Q6H [facility] Last Infusion: 09/02/23 21:20 Dose: Infused Vancomycin HCl 1,250 mg/ (Sodium Chloride) 250 mls @ 166.667 mls/hr IV Q12H [facility] Last Admin: 09/02/23 21:32 Dose: 166.67 mls/hr Insulin Glargine (Insulin Glargine,Hum.Rec.Anlog 100 Unit/Ml 10 Ml Vial) 10 unit SUBCUT BEDTIME [facility] Last Admin: 09/02/23 20:55 Dose: 10 unit Insulin Human Lispro (Insulin Lispro 100 Unit/Ml 3 Ml Vial) 0 unit SUBCUT QIDACHS [facility]; Protocol Last Admin: 09/02/23 20:51 Dose: 2 unit Lisinopril (Lisinopril 2.5 Mg Tablet) 2.5 mg PO DAILY [facility]; Protocol Last Admin: 09/02/23 08:15 Dose: 2.5 mg Loperamide HCl (Loperamide Hcl 2 Mg Capsule) 2 mg PO Q6H PRN PRN Reason: Loose Stool Melatonin (Melatonin 3 Mg Tablet) 9 mg PO BEDTIME PRN PRN Reason: Insomnia Last Admin: 08/29/23 22:18 Dose: 9 mg Methadone HCl (Methadone Hcl 20 Mg/2 Ml Oral.Conc) 150 mg PO DAILY [facility] Last Admin: 09/02/23 07:36 Dose: 150 mg Multivitamins/Vitamin C (Multivitamin Tablet) 1 tab PO DAILY [facility] Last Admin: 09/02/23 10:43 Dose: Not Given Nicotine (Nicotine 14 Mg Patch.Td24) 14 mg TRANSDERMA DAILY [facility] Last Admin: 09/02/23 08:14 Dose: 14 mg Ondansetron HCl (Ondansetron Hcl 4 Mg/2 Ml Vial) 4 mg IVPUSH Q8H PRN PRN Reason: Nausea and Vomiting Oxybutynin Chloride (Oxybutynin Chloride 5 Mg Tablet) 5 mg PO BEDTIME [facility] Last Admin: 09/02/23 20:52 Dose: 5 mg Pharmacy Consult (Consult Rx Vancomycin Dosing) 1 each MISCELLANE DAILY PRN PRN Reason: Consult order Polyethylene Glycol (Polyethylene Glycol 3350 17 Gm Powd.Pack) 17 gm PO DAILY [facility] Last Admin: 09/02/23 10:44 Dose: Not Given Senna (Sennosides 8.6 Mg Tablet) 8.6 mg PO BID [facility] Last Admin: 09/02/23 20:53 Dose: 8.6 mg Sodium Chloride (0.9 % Sodium Chloride Flush 3 Ml Syringe) [facility] Admin: 09/02/23 20:52 Dose: 3 ml Thiamine HCl (Thiamine Hcl 100 Mg Tablet) 100 mg PO DAILY [facility] Last Admin: 09/02/23 08:15 Dose: 100 mg Topiramate (Topiramate 25 Mg Tablet) 25 mg PO DAILY [facility] Last Admin: 09/02/23 08:15 Dose: 25 mg Home Medications Medication Instructions Recorded Confirmed Last Taken Type Saccharomyces boulardii 1 cap PO BID 08/28/23 08/28/23 Unknown History acetaminophen 500 mg tablet 1,000 mg PO TID 08/28/23 08/28/23 Unknown History ammonium lactate 5 % lotion 1 appl topical DAILY 08/28/23 08/28/23 Unknown History (Lac-Hydrin Five) aspirin 81 mg capsule 81 mg PO DAILY 08/28/23 08/28/23 Unknown History atorvastatin 10 mg tablet 10 mg PO BEDTIME 08/28/23 08/28/23 Unknown History baclofen 5 mg tablet 15 mg PO TID 08/28/23 08/28/23 Unknown History chlorhexidine gluconate 0.12 % 15 ml buccal BID 08/28/23 08/28/23 Unknown History mouthwash clonazepam 0.5 mg tablet (Klonopin) 0.5 mg PO BID 08/28/23 08/28/23 Unknown History clotrimazole 1 % topical cream 1 appl topical BID 08/28/23 08/28/23 Unknown History empagliflozin 25 mg tablet 25 mg PO DAILY 08/28/23 08/28/23 Unknown History famotidine 20 mg tablet 20 mg PO DAILY 08/28/23 08/28/23 Unknown History gabapentin 800 mg tablet 800 mg PO TID 08/28/23 08/28/23 Unknown History glipizide 10 mg tablet, extended 20 mg PO DAILY 08/28/23 08/28/23 Unknown History release 24 hr hydromorphone 8 mg tablet 8 mg PO Q12H PRN Pain 08/28/23 08/28/23 Unknown History hydromorphone 8 mg tablet 8 mg PO TID 08/28/23 08/28/23 Unknown History (Dilaudid) hydroxyzine HCl 50 mg tablet 100 mg PO BEDTIME 08/28/23 08/28/23 Unknown History insulin glargine 100 unit/mL 10 unit subcut QPM 08/28/23 08/28/23 Unknown History subcutaneous solution (Lantus U-100 Insulin) insulin lispro 100 unit/mL 1 sliding scale dose subcut 08/28/23 08/28/23 Unknown History subcutaneous solution (Admelog USEASDIRECTD U-100 Insulin lispro) lidocaine 3 % topical cream 1 appl topical DAILY PRN Pain 08/28/23 08/28/23 Unknown History lidocaine 3 % topical cream 1 appl topical Q48H 08/28/23 08/28/23 Unknown History lisinopril 2.5 mg tablet 2.5 mg PO DAILY 08/28/23 08/28/23 Unknown History loperamide 2 mg tablet 2 mg PO Q6H PRN Loose Stool 08/28/23 08/28/23 Unknown History melatonin 5 mg tablet 10 mg PO BEDTIME PRN Insomnia 08/28/23 08/28/23 Unknown History methadone 10 mg/mL oral 150 mg PO DAILY 08/28/23 08/28/23 08/28/23 08:00 History concentrate (Methadose) multivitamin 1 tab PO DAILY 08/28/23 08/28/23 Unknown History oxybutynin chloride 5 mg tablet 5 mg PO BEDTIME 08/28/23 08/28/23 Unknown History polyethylene glycol 3350 17 gram 17 g PO DAILY 08/28/23 08/28/23 Unknown History oral powder packet (Miralax) sennosides 8.6 mg tablet (senna) 8.6 mg PO BID 08/28/23 08/28/23 Unknown History thiamine HCl (vitamin B1) 100 mg 100 mg PO DAILY 08/28/23 08/28/23 Unknown History tablet tizanidine 2 mg tablet 2 mg PO TID 08/28/23 08/28/23 Unknown History topiramate 25 mg tablet 25 mg PO DAILY 08/28/23 08/28/23 Unknown History trazodone 50 mg tablet 50 mg PO BEDTIME 08/28/23 08/28/23 Unknown History Physical Exam Vital Signs: Vital Signs: Last Vital Signs Temp 97.5 F 09/02/23 19:42 Pulse 78 09/02/23 19:42 Resp 17 09/02/23 19:42 BP 151/72 H 09/02/23 19:42 Pulse Ox 93 09/02/23 19:42 O2 Del Method Room Air 09/02/23 19:42 BMI result Body Mass Index 37.0 Const: General: cooperative HEENT: Head: Yes normal to inspection Face and sinus: Yes normal facial exam Mouth: Normal oral and palatal mucosa present Teeth and gingiva: dentition normal Eyes: General: appearance normal, both eyes and all related structures Pupils: Equal, round and reactive pupils present Resp: Effort & Inspection: normal respiratory effort Cardio: Rate: regular rate Rhythm: regular rhythm GI: Palpation (GI): Soft to palpation and nontender : General: Yes no CVA tenderness Back/Spine/Pelvis: Back: no CVA tenderness Skin: General skin exam: no rashes or lesions noted Neuro: General: moves all extremities Cranial nerves: Yes Equal, round and reactive pupils present Extrem: Other: right heel eschar General: Yes normal to inspection Psych: Appearance: grossly normal Results Labs 08/29/23 05:54 09/02/23 05:08 Labs: BMP 09/02/23 05:08 Creatinine 0.74 Microbiology Microbiology Results: Microbiology 08/28/23 13:23 Blood - Venous Blood Culture - Final No growth after 5 days. 08/28/23 13:23 Blood - Venous Blood Culture - Final No growth after 5 days. 08/28/23 10:20 Heel, Right Gram Stain - Final 08/28/23 10:20 Heel, Right Routine Culture - Final Staphylococcus aureus Morganella morganii ssp ariel Corynebacterium species 08/28/23 10:20 Heel, Right Anaerobic Culture - Preliminary Culture in progress. Assessment and Plan (1) PAD (peripheral artery disease): Status: Acute (2) Diabetic ulcer of heel: Status: Acute Heel eschar with ESR only 11 and no OM seen on CT scan Multiple organisms superficial swab just skin colonization. There is some cellulitis also (3) Cellulitis: Qualifiers: Laterality: right Site of cellulitis: extremity Site of cellulitis of extremity: lower extremity Qualified Code(s): L03.115 - Cellulitis of right lower limb Status: Acute Plan Continue current antibiotic with Vancomycin and Zosyn. Likely Augmentin and Doxycycline for 21 days outpatient.
[2023-09-03 04:00] VITALS: BP 165/89; PULSE 65; RESP 17; TEMP 36.5; O2SAT 96
[2023-09-03] MEDS: Piperacillin Sodium/Tazobactam 3.375 GM in 0.9 % Sodium Chloride 50 ML IV ×4 (04:12→20:08)
[2023-09-03 07:33] VITALS: BP 149/84; PULSE 71; RESP 16; TEMP 36.2; O2SAT 100
[2023-09-03 07:41] LABS: Glucose, Whole Blood 165 mg/dL (60-115)
[2023-09-03] MEDS: Famotidine 20 MG TABLET PO (07:42)
[2023-09-03] MEDS: lisinopriL 2.5 MG TABLET PO (07:42)
[2023-09-03] MEDS: methADONE HCl 20 MG/2 ML ORAL.CONC 150 MG PO (07:42)
[2023-09-03] MEDS: Nicotine 14 MG PATCH.TD24 TRANSDERMA (07:43)
[2023-09-03] MEDS: Aspirin Enteric Coated 81 MG TABLET.DR PO (07:43)
[2023-09-03] MEDS: Insulin Lispro 100 UNIT/ML 3 ML VIAL SUBCUT ×3 (08:13→20:40)
[2023-09-03 08:42] LABS: Vancomycin Random 17.8 mcg/mL (15-20)
[2023-09-03 08:43] LABS: Creatinine Clr Calc Pharmacy 78.4; Estimated Glomerular Filt Rate > 60
--- NOTE | 2023-09-03 08:57 | HE.PHANOTE ---
RE: LAUREN Patients level came back this morning at 17.8 Patients current dose of 1250 mg Q12H shows trough of 667, supra therapeutic. Patient only got one dose of 1250 and jumped from 13.4 to 17.8. Decreased dose back to 1000 mg Q12H will get another level tomorrow 09/04 @0800.
[2023-09-03] MEDS: Gabapentin 300 MG CAPSULE 600 MG PO ×3 (09:50→20:12)
[2023-09-03] MEDS: Topiramate 25 MG TABLET PO (09:50)
[2023-09-03] MEDS: HYDROmorphone HCl 2 MG TABLET 6 MG PO ×2 (09:51→14:42)
[2023-09-03] MEDS: Multivitamin TABLET 1 TAB PO (09:51)
[2023-09-03] MEDS: Thiamine HCL 100 MG TABLET PO (09:51)
[2023-09-03] MEDS: Heparin Sodium,Porcine Flush 50 UNITS/5 ML SYRINGE IVFLUSH ×3 (09:51→21:55)
[2023-09-03] MEDS: vancomycin HCL 1,000 MG in 0.9 % Sodium Chloride 250 ML 270 MG IV ×2 (10:45→20:43)
[2023-09-03 11:48] LABS: Glucose, Whole Blood 139 mg/dL (60-115)
[2023-09-03] MEDS: Baclofen 10 MG TABLET 15 MG PO ×2 (14:42→20:12)
[2023-09-03 15:19] VITALS: BP 172/86; PULSE 70; RESP 18; TEMP 36.6; O2SAT 96
--- NOTE | 2023-09-03 16:49 | P.PNIM_ITS ---
Subjective Subjective Date of Service: 09/03/23 Interval History: Complaining of right heel pain, worse with dressing change, no other acute issues, no fevers, no chills, mostly in in bed otherwise in wheelchair Review of Systems All other system reviewed and negative. Physical Exam 2 Vital Signs: Vital Signs: Last Vital Signs Temp 97.8 F 09/03/23 15:19 Pulse 70 09/03/23 15:19 Resp 18 09/03/23 15:19 BP 172/86 H 09/03/23 15:19 Pulse Ox 96 09/03/23 15:19 O2 Del Method Room Air 09/03/23 15:19 BMI result Body Mass Index 37.0 Const: Other: Gen: Awake alert x3, in no acute distress HEENT: sclera anicteric, moist mucus membranes Neck: supple, no JVD Lungs: clear to auscultation bilaterally Heart: regular rate and rhythm, no murmurs Abd: soft, non-tender, non-distended Ext: s/p L BKA. RLE persistent erythema and induration improved significantly,from proximal calf/schwab inferiorly with lateral ulcers no drainage large ulcer over R heel see wound nurse report for detail Skin: warm/well-perfused Neuro: alert and oriented x3, no focal findings. Psych: appropriate affect Objective Data Active Medications Acetaminophen (Acetaminophen 325 Mg Tablet) 650 mg PO Q6H PRN PRN Reason: Pain, Mild (Pain Scale 1-3) Aspirin (Aspirin Enteric Coated 81 Mg Tablet.) 81 mg PO DAILY [facility] Last Admin: 09/03/23 07:43 Dose: 81 mg Documented By: SANNA Atorvastatin Calcium (Atorvastatin Calcium 10 Mg Tablet) 10 mg PO BEDTIME [facility] Last Admin: 09/02/23 20:53 Dose: 10 mg Documented By: KELVIN Baclofen (Baclofen 10 Mg Tablet) 15 mg PO TID [facility] Last Admin: 09/03/23 14:42 Dose: 15 mg Documented By: GUSTAVO Chlorhexidine Gluconate (Chlorhexidine Gluc Oral Rinse 15 Ml Mouthwash) 15 ml BUCCAL BID [facility] Last Admin: 09/03/23 09:59 Dose: Not Given Documented By: SANNA Non-Admin Reason: Patient Refused Dextrose (Dextrose 50 % 25 Gm/50 Ml Syringe) 25 gm IVPUSH Q15M PRN; Protocol PRN Reason: per Hypoglycemia Standing Ord. Enoxaparin Sodium (Enoxaparin Sodium 40 Mg/0.4 Ml Syringe) 40 mg SUBCUT Q24H [facility] Last Admin: 09/02/23 17:18 Dose: 40 mg Documented By: SANNA Famotidine (Famotidine 20 Mg Tablet) 20 mg PO DAILY [facility] Last Admin: 09/03/23 07:42 Dose: 20 mg Documented By: SANNA Gabapentin (Gabapentin 300 Mg Capsule) 600 mg PO TID [facility] Last Admin: 09/03/23 14:43 Dose: 600 mg Documented By: GUSTAVO Glucose (Glucose Gel 15 Gm Gel..Gram.) 15 gm PO Q15M PRN; Protocol PRN Reason: per Hypoglycemia Standing Ord. Heparin Sodium (Porcine) (Heparin Sodium,Porcine Flush 50 Units/5 Ml Syringe) 50 units IVFLUSH QSHIFT [facility] Last Admin: 09/03/23 09:51 Dose: 50 units Documented By: SANNA Hydromorphone HCl (Hydromorphone Hcl 2 Mg Tablet) 6 mg PO TID [facility] Last Admin: 09/03/23 14:42 Dose: 6 mg Documented By: GUSTAVO Hydroxyzine HCl (Hydroxyzine Hcl 50 Mg Tablet) 100 mg PO BEDTIME [facility] Last Admin: 09/02/23 20:52 Dose: 100 mg Documented By: KELVIN Piperacillin Sod/Tazobactam (Sod 3.375 gm/ Sodium Chloride) 50 mls @ 100 mls/hr IV Q6H [facility] Last Infusion: 09/03/23 15:29 Dose: Infused Documented By: SANNA Vancomycin HCl 1,000 mg/ (Sodium Chloride) 270 mls @ 270 mls/hr IV Q12H [facility] Last Infusion: 09/03/23 11:57 Dose: Infused Documented By: SANNA Insulin Glargine (Insulin Glargine,Hum.Rec.Anlog 100 Unit/Ml 10 Ml Vial) 10 unit SUBCUT BEDTIME [facility] Last Admin: 09/02/23 20:55 Dose: 10 unit Documented By: KELVIN Insulin Human Lispro (Insulin Lispro 100 Unit/Ml 3 Ml Vial) 0 unit SUBCUT QIDACHS [facility]; Protocol Last Admin: 09/03/23 11:57 Dose: Not Given Documented By: SANNA Non-Admin Reason: No Insulin Coverage Lisinopril (Lisinopril 2.5 Mg Tablet) 2.5 mg PO DAILY [facility]; Protocol Last Admin: 09/03/23 07:42 Dose: 2.5 mg Documented By: SANNA Loperamide HCl (Loperamide Hcl 2 Mg Capsule) 2 mg PO Q6H PRN PRN Reason: Loose Stool Melatonin (Melatonin 3 Mg Tablet) 9 mg PO BEDTIME PRN PRN Reason: Insomnia Last Admin: 08/29/23 22:18 Dose: 9 mg Documented By: KWAME Methadone HCl (Methadone Hcl 20 Mg/2 Ml Oral.Conc) 150 mg PO DAILY [facility] Last Admin: 09/03/23 07:42 Dose: 150 mg Documented By: SANNA Multivitamins/Vitamin C (Multivitamin Tablet) 1 tab PO DAILY [facility] Last Admin: 09/03/23 09:51 Dose: 1 tab Documented By: SANNA Nicotine (Nicotine 14 Mg Patch.Td24) 14 mg TRANSDERMA DAILY [facility] Last Admin: 09/03/23 07:43 Dose: 14 mg Documented By: SANNA Ondansetron HCl (Ondansetron Hcl 4 Mg/2 Ml Vial) 4 mg IVPUSH Q8H PRN PRN Reason: Nausea and Vomiting Oxybutynin Chloride (Oxybutynin Chloride 5 Mg Tablet) 5 mg PO BEDTIME [facility] Last Admin: 09/02/23 20:52 Dose: 5 mg Documented By: KELVIN Pharmacy Consult (Consult Rx Vancomycin Dosing) 1 each MISCELLANE DAILY PRN PRN Reason: Consult order Polyethylene Glycol (Polyethylene Glycol 3350 17 Gm Powd.Pack) 17 gm PO DAILY [facility] Last Admin: 09/03/23 09:59 Dose: Not Given Documented By: SANNA Non-Admin Reason: Patient Refused Senna (Sennosides 8.6 Mg Tablet) 8.6 mg PO BID [facility] Last Admin: 09/03/23 09:59 Dose: Not Given Documented By: SANNA Non-Admin Reason: Patient Refused Sodium Chloride (0.9 % Sodium Chloride Flush 3 Ml Syringe) 3 ml IVFLUSH QSHIFT [facility] Last Admin: 09/03/23 09:58 Dose: Not Given Documented By: SANNA Non-Admin Reason: IV Running Thiamine HCl (Thiamine Hcl 100 Mg Tablet) 100 mg PO DAILY [facility] Last Admin: 09/03/23 09:51 Dose: 100 mg Documented By: SANNA Topiramate (Topiramate 25 Mg Tablet) 25 mg PO DAILY [facility] Last Admin: 09/03/23 09:50 Dose: 25 mg Documented By: SANNA Labs 08/29/23 05:54 09/03/23 08:18 Labs: Laboratory Results - last 24 hr 09/02/23 09/02/23 09/02/23 16:47 19:57 20:13 Hold Purple Top Estim Creat Clear Calc Estimated GFR POC Glucose 244 H 173 H Random Vancomycin 13.4 L 09/03/23 09/03/23 09/03/23 07:34 08:18 11:41 Hold Purple Top SEE NOTE Estim Creat Clear Calc 78.4 Estimated GFR > 60 POC Glucose 165 H 139 H Random Vancomycin 17.8 Microbiology Microbiology Results: Microbiology 08/28/23 10:20 Gram Stain - Final Heel, Right Routine Culture - Final Staphylococcus aureus Morganella morganii ssp ariel Corynebacterium species Anaerobic Culture - Final 08/28/23 13:23 Blood Culture - Final Blood - Venous No growth after 5 days. 08/28/23 13:23 Blood Culture - Final Blood - Venous No growth after 5 days. Assessment and Plan (1) Diabetes mellitus type 2 in obese: Status: Acute (2) Diabetic ulcer of heel: Status: Acute Plan 58yo F long-term resident of [facility] with DM2 s/p L BKA, HTN, chronic pain on methadone + hydromorphone, urinary retention with chronic [place] anxiety/depression, tobacco abuse, and chronic RLE wounds presenting with cellulitis of RLE and concern of R heel ulcer infection #infected diabetic ulcer of R heel with cellulitis, not septic on iv vanc + pip-susy 08/28-. BCx neg x 48h ,wound culture grew Staph, Corynebacterium and Morganella morganii cannot do MRI, CT with contrast showed acute cellulitis, no abscess formation, no periosteal or cortical erosion to suggest osteomyelitis however occult osteomyelitis not ruled out Arterial duplex limited study, indicate more proximal iliac arterial disease versus below-knee arterial occlusive disease. seen by vascular surgery he recommended an endovascular intervention, however patient declined the procedure she demanded for general anaesthesia and would like to try to heal these on her own in a sitting position which she feels will be best for he, Dr. Bey recommend continued local wound care antibiotic and wound care follow-up as outpatient he recommend follow-up with him on as needed basis. 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 Right lower leg venous dermatitis wound wound bed dry red with adherent yellow slough Seen by wound nurse will follow-up there instructions. 1. Turn and Reposition every 2 hours and as needed for patient comfort consider use of wedges available in the storeroom. 2. Off Load all bony prominences with use of pillows, wedges and heel boots. 3. Monitor for incontinence and moisture control. 4. Provide adequate and supplemental nutrition. 5. Order or Continue low air loss mattress. 6. Maintain blood glucose levels per Providers orders. As per patient she gets dressing change every 3 days/CM checked with SNF day notified that patient refuses to go to wound clinic and cancel her appointments they are willing to continue to take her if she is agreeable to continue wound care follow-up. HTN -suboptimal blood pressure control will increase dose of lisinopril to 5 mg and follow BP HLD - statin DM2 - blood sugars stable continue basal-bolus insulin tobacco abuse - NRT, counseling done chronic pain -on multiple narcotic and sedative medications including methadone, hydromorphone, gabapentin, baclofen, tizanidine , Had an episode of somnolence and apnea treated with Narcan on 09/01 Therefore Neurontin dose reduced, Trazodone, Zanaflex and as needed Dilaudid discontinued , Receive medication list from [facility]/they sent same list that came with patient earlier. Spoke with skilled nursing case manager she requested for current medication list. urinary retention - oxybutynin, continue chronic [place] mood disorder - clonazepam, hydroxyzine, topiramate, and dc trazodone. GERD - famotidine VTE prophylaxis - LMWH dispo - eventual return to LTC @ [facility] In my clinical judgment, the patient requires continued inpatient hospitalization for the following reasons: IV ABX, wound care. Quality Stroke Does the patient have a stroke diagnosis?: No VTE Prior VTE?: No VTE Risk Level:: Medical - moderate - high VTE Device Contraindication: Procedure Contraindicated VTE Drug Contraindication: N/A - Med Ordered
[2023-09-03 17:04] LABS: Glucose, Whole Blood 151 mg/dL (60-115)
[2023-09-03] MEDS: 0.9 % Sodium Chloride Flush 3 ML SYRINGE IVFLUSH ×2 (17:22→20:13)
[2023-09-03] MEDS: Enoxaparin Sodium 40 MG/0.4 ML SYRINGE SUBCUT (17:22)
--- NOTE | 2023-09-03 18:10 | P.CDIM_ITS ---
PROVIDER RESPONSE TEXT: To clarify, the appropriate diagnosis supported by the clinical indicators: skin breakdown only QUERY TEXT: PHYSICIAN'S DOCUMENTATION REQUEST Date of Query: 09/03/2023 08:09 AM EDT Patient Name: Corine Mitchell Admit Date: 08/28/2023 Dear Kisha Bardales, A review of the medical record indicates additional documentation may be needed. Please review below and update the documentation accordingly. Clinical Indicators: Per wound note 08/31/23: right lateral heel diabetic foot wound 3cm x 3cm x 0.2cm Wound Bed: pink dry wound bed with scattered areas of yellow moist slough Drainage / Odor: Small amount of yellow drainage - no odor noted Edges: Epibole Radha wound: callused and red erythema No Induration, No Fluctuance Pain: Pt reports extreme pain Goals of Treatment: Moist wound healing to allow for autolytic debridement Based on the above, could you please provide further information regarding the specificity of the jefferson betic ulcer/wound: skin breakdown only exposed fat layer (subcutaneous tissue) muscle involvement without evidence of necrosis muscle necrosis bone involvement without evidence of necrosis bone necrosis Other (explain)Clinically unable to determine (explain)Thank you, Kiana Pepe RN Use of terms such as suspected, likely, concern for, or probable (associated with a specific diagnosi s that is being evaluated, monitored, or treated as if it exists) are acceptable and can be coded in the inpatient se tting, when documented at the time of discharge. Please use your independent medical judgment in providing your response. THIS QUERY IS PART OF THE PERMANENT MEDICAL RECORD
--- NOTE | 2023-09-03 18:10 | P.CDIM_ITS ---
PROVIDER RESPONSE TEXT: To clarify, the appropriate diagnosis supported by the clinical indicators: skin breakdown only QUERY TEXT: PHYSICIAN'S DOCUMENTATION REQUEST Date of Query: 09/03/2023 08:16 AM EDT Patient Name: Corine Mitchell Admit Date: 08/28/2023 Dear Kisha Bardales, A review of the medical record indicates additional documentation may be needed. Please review below and update the documentation accordingly. Clinical Indicators: Per wound assessment 08/31/23: Right medial heel diabetic foot wound 1cm x 1cm x 0.2cm Wound Bed: Dry red wound bed Drainage / Odor: None Edges: callused and epibole Radha wound: Callused and red No Induration, No Fluctuance noted, Red Erythema Pain: Pt reports pain Goals of Treatment: Moist wound healing to allow for autolytic debridement Based on the above, could you please provide further information regarding the specificity of the jefferson betic ulcer/wound: skin breakdown only exposed fat layer (subcutaneous tissue) muscle involvement with evidence of necrosis muscle necrosis bone involvement without evidence of necrosis bone necrosis Other (explain)Clinically unable to determine (explain)Thank you, Kiana Pepe RN Use of terms such as suspected, likely, concern for, or probable (associated with a specific diagnosi s that is being evaluated, monitored, or treated as if it exists) are acceptable and can be coded in the inpatient se tting, when documented at the time of discharge. Please use your independent medical judgment in providing your response. THIS QUERY IS PART OF THE PERMANENT MEDICAL RECORD
[2023-09-03 20:00] VITALS: BP 170/78; PULSE 65; RESP 17; TEMP 37.1; O2SAT 95
[2023-09-03] MEDS: Chlorhexidine Gluc Oral Rinse 15 ML MOUTHWASH BUCCAL (20:12)
[2023-09-03] MEDS: oxyBUTYnin chloride 5 MG TABLET PO (20:12)
[2023-09-03] MEDS: Melatonin 3 MG TABLET 9 MG PO (20:12)
[2023-09-03] MEDS: Sennosides 8.6 MG TABLET PO (20:12)
[2023-09-03] MEDS: hydrOXYzine HCL 50 MG TABLET 100 MG PO (20:12)
[2023-09-03] MEDS: Atorvastatin Calcium 10 MG TABLET PO (20:13)
[2023-09-03 20:19] LABS: Glucose, Whole Blood 153 mg/dL (60-115)
[2023-09-03] MEDS: Insulin Glargine,Hum.rec.anlog 100 UNIT/ML 10 ML VIAL 10 UNIT SUBCUT (20:44)
[2023-09-04 03:42] VITALS: BP 184/90; PULSE 69; RESP 17; TEMP 36.4; O2SAT 95
[2023-09-04] MEDS: Piperacillin Sodium/Tazobactam 3.375 GM in 0.9 % Sodium Chloride 50 ML IV ×2 (03:44→09:17)
[2023-09-04] MEDS: Ibuprofen 400 MG TABLET PO (03:58)
[2023-09-04 05:53] VITALS: BP 178/96
[2023-09-04 07:45] VITALS: BP 160/84; PULSE 55; RESP 18; TEMP 36; O2SAT 90
[2023-09-04 09:07] LABS: Creatinine Clr Calc Pharmacy 72.2; Estimated Glomerular Filt Rate > 60
[2023-09-04] MEDS: Insulin Lispro 100 UNIT/ML 3 ML VIAL SUBCUT ×2 (09:15→12:34)
[2023-09-04] MEDS: Nicotine 14 MG PATCH.TD24 TRANSDERMA (09:15)
[2023-09-04] MEDS: Thiamine HCL 100 MG TABLET PO (09:16)
[2023-09-04] MEDS: 0.9 % Sodium Chloride Flush 3 ML SYRINGE IVFLUSH (09:16)
[2023-09-04] MEDS: Heparin Sodium,Porcine Flush 50 UNITS/5 ML SYRINGE IVFLUSH (09:16)
[2023-09-04] MEDS: Multivitamin TABLET 1 TAB PO (09:16)
[2023-09-04] MEDS: Famotidine 20 MG TABLET PO (09:16)
[2023-09-04] MEDS: Aspirin Enteric Coated 81 MG TABLET.DR PO (09:16)
[2023-09-04] MEDS: lisinopriL 2.5 MG TABLET PO (09:16)
[2023-09-04] MEDS: Chlorhexidine Gluc Oral Rinse 15 ML MOUTHWASH BUCCAL (09:17)
[2023-09-04] MEDS: methADONE HCl 20 MG/2 ML ORAL.CONC 150 MG PO (09:17)
--- NOTE | 2023-09-04 09:22 | HE.PHANOTE ---
VANCO DOSING TROUGH TODAY IS 15.0. SLIGHTLY LOWER THAN WHERE INSIGHT SAYS SHE SHOULD BE BUT SHE WILL CONTINUE TO INCREASE HOPEFULLY TO A STEADY STATE AROUND 17. MAINTAIN CURRENT REGIMEN AND RECHECK TROUGH 09/06/23. CONTINUE DAILY MONITORING OF RENAL FUNCTION.
[2023-09-04 11:20] LABS: Glucose, Whole Blood 174 mg/dL (60-115)
[2023-09-04] MEDS: Baclofen 10 MG TABLET 15 MG PO ×2 (11:29→16:06)
[2023-09-04] MEDS: Gabapentin 300 MG CAPSULE 600 MG PO ×2 (11:30→16:06)
[2023-09-04] MEDS: Topiramate 25 MG TABLET PO (11:30)
[2023-09-04] MEDS: vancomycin HCL 1,000 MG in 0.9 % Sodium Chloride 250 ML 270 MG IV (11:31)
[2023-09-04 11:35] LABS: Glucose, Whole Blood 180 mg/dL (60-115)
--- NOTE | 2023-09-04 12:05 | P.DS_ITS ---
DS: Providers Provider Date of Service: 09/04/23 Date of admission: 08/28/23 16:20 Primary care physician: Riley Alex MD Consults: 08/28/23 15:37 Consult to Wound Care Routine Reason for consultation: heel wound 09/01/23 15:14 Consult to Vascular Surgery Routine Consulting Provider: Janusz Bey Reason for consultation: rt foot wound Has provider been notified: No 09/02/23 14:42 Consult to Infectious Diseases Routine Consulting Provider: Thelma Gross Reason for consultation: rt heel wound Has provider been notified: No DS: Diagnosis Discharge Diagnosis (1) Diabetes mellitus type 2 in obese: Status: Acute (2) Diabetic ulcer of heel: Status: Acute DS: Summary Hospital Course Hospital Course: 58yo F long-term resident of [facility] with DM2 s/p L BKA, HTN, chronic pain on methadone + hydromorphone, urinary retention with chronic [place] anxiety/depression, and tobacco abuse who was sent in by the [facility], where she was being seen for a chronic R heel ulcer as well as ulcers on the schwab. They sent her in for concern of infection and possible underlying osteomyelitis due to worsening drainage as well as extensive redness. She reports increasing burning pain to the RLE for several. She denies fever or chills. In the ED, she was given IV vancomycin and piperacillin-tazobactam. A plain film X-ray did not demonstrate bony erosion. Hospital Course Admitted to general medical floor and maintained on vancomycin and Zosyn. Patient refused MRI necessitating id consult. Infectious Disease examined patient at the recommendation was Augmentin 875 b.i.d. and doxycycline 100 mg b.i.d. for 21 days duration. At this time, patient is medically acceptable for discharge Time Attestation Discharge coordination time: Greater than 30 minutes Quality: Safe Use of Opioids Does Pt have an Active Cancer Diagnosis on the Problem List?: No Quality: Stroke Does the patient have a stroke diagnosis?: No Physical Exam Vital Signs: Vital Signs: Last Vital Signs Temp 96.8 F 09/04/23 07:45 Pulse 55 09/04/23 07:45 Resp 18 09/04/23 07:45 BP 160/84 H 09/04/23 07:45 Pulse Ox 90 L 09/04/23 07:45 O2 Del Method Room Air 09/04/23 07:45 BMI result Body Mass Index 37.0 Const: Other: Awake alert no acute distress Resp: Other: Clear to auscultation bilaterally no rales rhonchi or wheezes Cardio: Other: No S4; positive S1-S2; no S3 murmurs rubs or gallops GI: Other: Soft nontender nondistended normoactive bowel sounds Skin: Other: Improved right lower extremity erythema (please see admission photos for details) Extrem: Other: Erythema right leg improved DS: Data Data Completed and Pending Labs on day of discharge: Laboratory Results - last 24 hr 09/03/23 09/03/23 09/04/23 16:58 20:11 07:32 Creatinine Estim Creat Clear Calc Estimated GFR POC Glucose 151 H 153 H 174 H Random Vancomycin 09/04/23 09/04/23 08:19 11:26 Creatinine 0.76 Estim Creat Clear Calc 72.2 Estimated GFR > 60 POC Glucose 180 H Random Vancomycin 15.0 Discharge Plan Discharge Anticipated Discharge Date/Time: 09/04/23 12:02 Patient Disposition: er [facility] Discharge Diagnosis: Right lower extremity cellulitis Referrals: Riley Alex MD [Primary Care Provider] - 1 Week Discharge Medications: New gabapentin 300 mg Capsule 600 mg PO TID Qty: 90 0RF nicotine 14 mg/24 hr Patch 24 Hour 14 mg transdermal DAILY Qty: 20 0RF doxycycline hyclate 100 mg capsule 100 mg PO BID Qty: 42 0RF amoxicillin-pot clavulanate 875-125 mg tablet 1 tab PO BID Qty: 42 0RF Continued insulin lispro [Admelog U-100 Insulin lispro] 100 unit/mL Solution 1 sliding scale dose SUBCUT USEASDIRECTD Protocol: Insulin Correction Scale Less than or equal to 110 ---- Give (units): 0 111 to 150 Give (units): 0 151 to 200 Give (units): 0 201 to 250 Give (units): 2 251 to 300 Give (units): 4 301 to 350 Give (units): 6 Greater than 350 Give (units): 8 Call MD if Blood Glucose > : 350 multivitamin Tablet 1 tab PO DAILY sennosides [senna] 8.6 mg Tablet 8.6 mg PO BID insulin glargine [Lantus U-100 Insulin] 100 unit/mL Solution 10 unit SUBCUT QPM polyethylene glycol 3350 [Miralax] 17 gram Powder In Packet 17 g PO DAILY atorvastatin 10 mg Tablet 10 mg PO BEDTIME hydromorphone [Dilaudid] 8 mg Tablet 8 mg PO TID clonazepam [Klonopin] 0.5 mg Tablet 0.5 mg PO BID loperamide 2 mg Tablet 2 mg PO Q6H PRN (Reason: Loose Stool) thiamine HCl (vitamin B1) 100 mg Tablet 100 mg PO DAILY topiramate 25 mg Tablet 25 mg PO DAILY hydroxyzine HCl 50 mg Tablet 100 mg PO BEDTIME acetaminophen 500 mg Tablet 1,000 mg PO TID famotidine 20 mg Tablet 20 mg PO DAILY methadone [Methadose] 10 mg/mL Concentrate 150 mg PO DAILY oxybutynin chloride 5 mg Tablet 5 mg PO BEDTIME Lac-Hydrin Five 5 % Lotion 1 appl TOPICAL DAILY clotrimazole 1 % Cream 1 appl TOPICAL BID Rx Instructions: APPLY TO JAY ANAL REDNESSS TOPICAL chlorhexidine gluconate 0.12 % Mouthwash 15 ml BUCCAL BID melatonin 5 mg Tablet 10 mg PO BEDTIME PRN (Reason: Insomnia) baclofen 5 mg Tablet 15 mg PO TID lidocaine 3 % Cream 1 appl TOPICAL DAILY MDD WOUND PAIN PRN (Reason: Pain) aspirin 81 mg Capsule 81 mg PO DAILY Saccharomyces boulardii 1 cap PO BID lisinopril 2.5 mg Tablet 2.5 mg PO DAILY empagliflozin 25 mg Tablet 25 mg PO DAILY lidocaine 3 % Cream 1 appl TOPICAL Q48H Rx Instructions: ON WOUND CARE DAYS Discontinued tizanidine 2 mg Tablet 2 mg PO TID trazodone 50 mg Tablet 50 mg PO BEDTIME glipizide 10 mg Tablet Extended Release 24hr 20 mg PO DAILY hydromorphone 8 mg Tablet 8 mg PO Q12H PRN (Reason: Pain) gabapentin 800 mg Tablet 800 mg PO TID Discharge Orders: Discharge Order (Routine); Ordered 09/04/23 Ordered By: Wil Aguilar Diet: Diabetic diet Activity on Discharge: As tolerated Stand Alone Forms: Patient Portal Discharge page Care Plan Goals: 1. Turn and Reposition every 2 hours and as needed for patient comfort consider use of wedges 2. Off Load all bony prominences with use of pillows, wedges and heel boots. 3. Monitor for incontinence and moisture control. 4. Provide adequate and supplemental nutrition. 5. low air loss mattress. 6. Maintain blood glucose levels per Providers orders. 7. Left Buttocks / Ischium - Off Load Pressure - Cleanse and irrigate with saline, apply Triad to periwound (skin prep if pt is not agreeable). Lightly pacl wound bed with plain packing strip be sure to leave a wick for easy removal. Cover with Dry Foam dressing. Change daily. 8. Right Lower Leg - Off Load Pressure off of bed surface - Cleanse lower leg with saline moist gauze, pay dry. Apply Vaseline to Lower Leg, Cover wound beds with Thick layer of Wound Gel - cover with dry gauze , ABD pads and gauze wrap. Change daily. Health Concerns: Polypharmacy with multiple sedatives and narcotics, monitor closely for sedation Plan of Treatment: Follow-up with wound clinic call for appointment Follow-up with primary care physician Follow-up with Dr. Bey for from vascular surgery Assessment: As above
--- NOTE | 2023-09-04 13:44 | MHC.CM.PN ---
NO CAREPORT RESPONSE FROM [facility] OF THIS NOTE. PATIENT IS DC AND IS A BEDHOLD AT FACILITY. CALL TO [phone] X [phone] AND SPOKE WITH RN, JYOTI, WHO IS NOW AWARE THAT PATIENT WILL RETURN FROM [facility] AT APPROX. 4 PM TODAY VIA AMBULANCE. RN AND UNIT AWARE OF PLAN.
[2023-09-04] MEDS: clonazePAM 0.5 MG TABLET PO (14:20)
== END 2023-09-04 16:46 | DRG 380 ==
LOC: HO.ED 13:03 → HO.EDOVER 16:31 → HO.S3 19:17
PROVIDERS: Hospitalist; Physician Assistant; Admitting Provider Family Medicine; Emergency Provider Emergency Medicine Emergency Medical Services; PCP Family Medicine; Visit Provider Hospitalist
PROC: 05HB33Z Insertion of Infusion Device into Right Basilic Vein, Percutaneous Approach (ICD-10-PCS; principal; 2023-08-31 16:20)
DX: E11.621 Type 2 diabetes mellitus with foot ulcer (principal); L89.44 Pressure ulcer of contiguous site of back, buttock and hip, stage 4; L03.115 Cellulitis of right lower limb; L97.411 Non-pressure chronic ulcer of right heel and midfoot limited to breakdown of skin; Z89.512 Acquired absence of left leg below knee; E11.628 Type 2 diabetes mellitus with other skin complications; F17.210 Nicotine dependence, cigarettes, uncomplicated; E78.5 Hyperlipidemia, unspecified; F39 Unspecified mood [affective] disorder; G89.29 Other chronic pain; I87.2 Venous insufficiency (chronic) (peripheral); K21.9 Gastro-esophageal reflux disease without esophagitis; Z71.6 Tobacco abuse counseling; Z96.0 Presence of urogenital implants; R33.9 Retention of urine, unspecified; Z79.4 Long term (current) use of insulin; Z79.82 Long term (current) use of aspirin; Z79.891 Long term (current) use of opiate analgesic; Z79.899 Other long term (current) drug therapy
CPT/HCPCS: 36410; 36415; 73650; 73701; 80048; 80202; 82565; 82947; 83605; 85025; 85027; 85652; 86140; 87040; 87070; 87073; 87077; 87186; 87205; 93926; 93971; 99285; C1751; C1758; J1170; J1200; J1642; J1650; J2543; J2920; J3370; J3371; Q9967

== ENCOUNTER → 2023-08-28 16:20 | Outpatient (BNV) | payer MEDICAID, SELFPAY | PROVIDERS: Admitting Provider Family Medicine; Emergency Provider Emergency Medicine Emergency Medical Services; PCP Family Medicine; Visit Provider Surgery Vascular Surgery | DX: I73.9 Peripheral vascular disease, unspecified (principal); E11.622 Type 2 diabetes mellitus with other skin ulcer; L97.819 Non-pressure chronic ulcer of other part of right lower leg with unspecified severity | CPT/HCPCS: 99222 ==

== ENCOUNTER → 2023-08-28 16:20 | Outpatient (BNV) | payer MEDICAID, SELFPAY | PROVIDERS: Admitting Provider Family Medicine; Emergency Provider Emergency Medicine Emergency Medical Services; PCP Family Medicine; Visit Provider Internal Medicine | DX: I73.9 Peripheral vascular disease, unspecified (principal); E11.621 Type 2 diabetes mellitus with foot ulcer; L97.409 Non-pressure chronic ulcer of unspecified heel and midfoot with unspecified severity; L03.115 Cellulitis of right lower limb | CPT/HCPCS: 99222 ==

== ENCOUNTER → 2023-08-28 16:20 | Outpatient (BNV) | payer MEDICAID, SELFPAY | PROVIDERS: Admitting Provider Family Medicine; Emergency Provider Emergency Medicine Emergency Medical Services; PCP Family Medicine; Visit Provider Family Medicine | DX: E11.621 Type 2 diabetes mellitus with foot ulcer (principal); L97.419 Non-pressure chronic ulcer of right heel and midfoot with unspecified severity; E66.9 Obesity, unspecified; Z68.37 Body mass index [BMI] 37.0-37.9, adult | CPT/HCPCS: 99223; 99232; 99233; 99239 ==

== ENCOUNTER 2024-03-08 09:07 | Outpatient (AMB) | payer MEDICAID, SELFPAY ==
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
== END 2024-03-08 10:09 | disposition home or self-care (01) ==
PROVIDERS: PCP Family Medicine; Visit Provider Surgery Vascular Surgery
DX: I73.9 Peripheral vascular disease, unspecified (principal)
CPT/HCPCS: 99214

== ENCOUNTER → 2024-03-08 09:07 | Outpatient (BNVA) | payer MEDICAID, SELFPAY | PROVIDERS: PCP Family Medicine; Visit Provider Surgery Vascular Surgery | DX: I73.9 Peripheral vascular disease, unspecified (principal); L97.919 Non-pressure chronic ulcer of unspecified part of right lower leg with unspecified severity | CPT/HCPCS: 99212 ==